=== PATIENT | female | born 1995 | race Caucasian/White ===

== ENCOUNTER → 2018-09-29 17:03 | Outpatient (CLI) | payer BC, MEDICAID, SELFPAY ==
[2018-09-29 17:40] LABS: Basophils % 0.3 % (0.1-2.0); Eosinophils % 0.8 % (0.1-12.0); Hematocrit 37.7 % (37.0-47.0); Hemoglobin 12.5 g/dL (12.2-16.2); Lymphocytes # 1.3 K/mm3 (0.7-4.5); Lymphocytes % 23.8 % (10-50); Mean Corpuscular HGB Conc 33.1 g/dL (31.8-35.4); Mean Corpuscular Hemoglobin 27.4 pg (27.0-31.2); Mean Corpuscular Volume 82.9 fl (81-99); Mean Platelet Volume 8.8 fl (7.4-10.4); Monocytes # 0.3 K/mm3 (0.1-1.0); Neutrophils # 3.7 K/mm3 (1.8-7.8); Neutrophils % 69.1 % (37.0-80.0); Platelet Count 327 K/mm3 (142-424); Red Blood Count 4.54 M/mm3 (4.20-5.40); Red Cell Distribution Width 13.3 % (11.5-17.5); White Blood Count 5.4 K/mm3 (4.8-10.8)
[2018-10-01 09:06] LABS: Rubella Antibodies, IgG 5.23 index (Immune >0.99)
[2018-10-01 09:24] LABS: HIV Screen 4th Generation wRfx Non Reactive (Non Reactive); Rapid Plasma Reagin Ab Titer Non Reactive (NonRea<1:1)
[2018-10-01 17:20] LABS: Hepatitis B Surface Antigen Negative (Negative); Hepatitis C Antibody 0.1 s/co ratio (0.0-0.9)
== END ==
PROVIDERS: Visit Provider Nurse Practitioner Obstetrics & Gynecology
DX: Z34.90 Encounter for supervision of normal pregnancy, unspecified, unspecified trimester (principal)
CPT/HCPCS: 36415; 85025; 86592; 86703; 86762; 86850; 87340; 87380; G0432

== ENCOUNTER → 2018-10-06 14:22 | Outpatient (CLI) | payer BC, MEDICAID, SELFPAY ==
--- NOTE | 2018-10-06 14:24 | US_ITS ---
US OB transvaginal HISTORY: ITS.REASON: US OB Dates ORDERING PHYSICIAN: Johnny Corley MD PATIENT AGE: 23 years COMPARISON: None FINDINGS: An intrauterine gestational sac is present with a pole with a crown-rump length of 1.83cm correlating to gestational age of 8w3d. heart tones are present with an FHR of 182 bpm's. Yolk sac is noted. The amnion and chorion have not yet fused. The uterus is retroverted Adnexa: Unremarkable. IMPRESSION: Live intrauterine gestation at 8 weeks 3 days as described above. Estimated due date by Ultrasound is 05/15/2019
== END ==
PROVIDERS: PCP Emergency Medicine; Visit Provider Nurse Practitioner Obstetrics & Gynecology
DX: O26.841 Uterine size-date discrepancy, first trimester (principal)
CPT/HCPCS: 76817

== ENCOUNTER → 2018-12-27 14:39 | Outpatient (CLI) | payer MEDICAID, SELFPAY ==
--- NOTE | 2018-12-27 14:42 | US_ITS ---
US OB /maternal detail: INDICATION: ITS.REASON: US OB Complete ORDERING PHYSICIAN: Johnny Corley MD PATIENT AGE: 23 years TECHNIQUE: ultrasound transabdominal scanning. COMPARISON: No previous relevant studies. FINDINGS: Single viable intrauterine gestation. Breech position. Placenta: Posterior placenta grade 1. There is average amount fluid. The cervix appears satisfactory. Closed and measuring 3 cm in length. Complete survey performed and was unremarkable on the submitted images as in PACS. No discrete anomalies identified on survey imaging by technologist. Active fetus. Three-vessel cord with satisfactory umbilical cord insertion. 4- chamber heart noted. Nonspecific echogenic intracardiac focus noted Survey of brain & ventricles unremarkable. Face and neck survey unremarkable. Diaphragm and chest views unremarkable. Abdomen: Both kidneys noted and unremarkable. Stomach noted and satisfactory. Spine: Survey of the spine satisfactory with no anomalies identified nor imaged. Both arms and legs noted. Amniotic Fluid: Adequate. Maternal adnexa: No significant findings. Measurements: Average ultrasound age 20w1d. Gestational Age 20w1d. Estimated due date by ultrasound age 1105/15/2019. Estimated weight 337 grams. BPD = 20w1d OFD = 20w2d HC = 19w3d AC = 20w1d FL = 20w4d Growth Percentile= 47% Heart Rate = 150 Cerebellum = 20w1d Humerus = 20w3d HC/AC is 1.13 (1.09-1.26). CI is 79% (70-86%). FL/BPD is 73%. FL/AC is 23%. IMPRESSION: There is a single live fetus in breech presentation. Average ultrasound age is 20 weeks and 1 day. All parameters correlate. Incidental note is made of an echogenic intracardiac focus which is nonspecific. Otherwise negative. Please see above for details.
== END ==
PROVIDERS: Visit Provider Nurse Practitioner Obstetrics & Gynecology
DX: Z36.0 Encounter for antenatal screening for chromosomal anomalies (principal)
CPT/HCPCS: 76811

== ENCOUNTER → 2019-02-12 09:37 | Outpatient (CLI) | payer MEDICAID, SELFPAY ==
[2019-02-12 10:08] LABS: Glucose,Fasting 84 mg/dL (60-105)
[2019-02-12 11:22] LABS: Glucose 1 Hour 88 mg/dL (74-106)
== END ==
PROVIDERS: Visit Provider Nurse Practitioner Obstetrics & Gynecology
DX: Z34.90 Encounter for supervision of normal pregnancy, unspecified, unspecified trimester (principal)
CPT/HCPCS: 36415; 82951

== ENCOUNTER 2019-04-21 09:40 | Outpatient (CLI) | payer MEDICAID, SELFPAY ==
[2019-04-21 09:55] VITALS: BP 144/96; PULSE 103; RESP 18; TEMP 36.6; O2SAT 99; BMI 32.5
[2019-04-21 10:17] LABS: Microscopic, Urine URINE MICROSCOPIC (MICROSCOPIC)
[2019-04-21 10:19] LABS: Appearance,Urine CLEAR (Clear); Bilirubin,Urine Negative (Negative); Blood, Urine Negative (Negative); Color,Urine YELLOW (Yellow); Glucose,Urine (UA) Negative (Negative); Ketones,Urine Negative (Negative); Leukocyte Esterase,Urine Negative (Negative); Nitrate,Urine Negative (Negative); Protein,Urine Negative (Negative); Specific Gravity, Urine 1.025 (1.005-1.030); Urobilinogen,Urine 0.2 EU/dl (0.2)
[2019-04-21 10:29] LABS: Amphetamine/Metha Screen,Urine Negative ng/mL (<1000); Barbiturates Screen,Urine Negative ng/mL (<200); Benzodiazepines Screen,Urine Negative ng/mL (<200); Cannabinoid Screen,Urine Negative ng/mL (<50); Cocaine Screen,Urine Negative ng/mL (<300); Methadone Screen,Urine Negative ng/mL (<300); Opiate Screen,Urine Negative ng/mL (<300); Phencyclidine Screen,Urine Negative ng/mL (<25)
[2019-04-21 10:34] LABS: Bacteria,Urine 1+ /lpf; RBC,Urine Occasional #/hpf (0-3)
[2019-04-21 11:06] LABS: Basophils % 0.4 % (0.1-2.0); Eosinophils % 0.6 % (0.1-12.0); Hematocrit 27.3 % (37.0-47.0); Hemoglobin 8.3 g/dL (12.2-16.2); Lymphocytes # 1.4 K/mm3 (0.7-4.5); Mean Corpuscular HGB Conc 30.5 g/dL (31.8-35.4); Mean Corpuscular Hemoglobin 24.2 pg (27.0-31.2); Mean Corpuscular Volume 79.3 fl (81-99); Mean Platelet Volume 9.6 fl (7.4-10.4); Monocytes # 0.4 K/mm3 (0.1-1.0); Monocytes % 5.1 % (1.7-9.3); Neutrophils % 72.9 % (37.0-80.0); Platelet Count 208 K/mm3 (142-424); Red Blood Count 3.44 M/mm3 (4.20-5.40); Red Cell Distribution Width 14.6 % (11.5-17.5); White Blood Count 6.8 K/mm3 (4.8-10.8)
[2019-04-21 11:24] LABS: Alanine Aminotransferase 15 U/L (12-78); Anion Gap 14.6 mEq/L (5-15); Aspartate Amino Transferase 8 U/L (15-37); Blood Urea Nitrogen 6 mg/dL (7-18); Calcium 7.7 mg/dL (8.5-10.1); Carbon Dioxide 22 mmol/L (21.0-32.0); Chloride 104 mmol/L (98-107); Creatinine Clearance Estimated 220 mL/min (50-200); Creatinine,Serum 0.49 mg/dL (0.55-1.02); Estimated Glomerular Filt Rate 157 ml/min (>60); GFR (African American) 189 ML/MIN (>60); Glucose 77 mg/dL (74-106); Potassium 3.6 mmoL/L (3.5-5.1); Sodium 137 mmol/L (136-145)
[2019-04-21 13:06] LABS: Activated Partial Thrombo Time 25.4 seconds (23.6-34.0); Fibrinogen 392 mg/dL (204-500); INR 0.91 (0.9-1.1); Prothrombin Time 9.5 seconds (9.4-11.8)
[2019-04-21 14:00] LABS: D-Dimer 797 ng/mL (0-400)
== END 2019-04-21 12:45 | disposition home or self-care (01) ==
LOC: OBOUT 09:42 → OB 09:42
PROVIDERS: PCP Nurse Practitioner; Visit Provider Nurse Practitioner Obstetrics & Gynecology
DX: O13.3 Gestational [pregnancy-induced] hypertension without significant proteinuria, third trimester (principal); Z3A.36 36 weeks gestation of pregnancy
CPT/HCPCS: 59025; 80048; 80305; 81001; 84450; 84460; 84550; 85025; 85378; 85384; 85610; 85730

== ENCOUNTER → 2019-04-21 16:36 | Outpatient (CLI) | payer MEDICAID, SELFPAY | PROVIDERS: Visit Provider Nurse Practitioner Obstetrics & Gynecology | DX: Z34.90 Encounter for supervision of normal pregnancy, unspecified, unspecified trimester (principal) | CPT/HCPCS: 86403 ==

== ENCOUNTER → 2019-04-23 11:59 | Outpatient (CLI) | payer MEDICAID, SELFPAY ==
[2019-04-23 15:28] LABS: Creatinine,Urine Random 75 mg/dL (20-320); Patient Height,Urine 61 inches; Patient Weight,Urine 172 lbs; Total Protein,Urine Random 12.9 mg/dL (0.0-11.9)
[2019-04-23 18:28] LABS: Collection Time,Urine 24 hours; Creatinine 24 Hour,Urine 1500 mg/24hr (630-2500); Creatinine Clearance Urine 204.1 mL/min (25-115); Total Protein 24 Hour,Urine 258 mg/24 hr (40-90); Total Volume,Urine 2000 mL (600-1600)
== END ==
PROVIDERS: Visit Provider Nurse Practitioner Obstetrics & Gynecology
DX: O13.3 Gestational [pregnancy-induced] hypertension without significant proteinuria, third trimester (principal); Z3A.36 36 weeks gestation of pregnancy
CPT/HCPCS: 82575; 84155

== ENCOUNTER 2019-05-02 10:10 | Inpatient (IN) ==
[2019-05-02 11:20] LABS: Microscopic, Urine URINE MICROSCOPIC (MICROSCOPIC)
[2019-05-02 11:35] LABS: Anion Gap 15.7 mEq/L (5-15); Basophils % 0.2 % (0.1-2.0); Calcium 8.1 mg/dL (8.5-10.1); Eosinophils % 0.7 % (0.1-12.0); Hemoglobin 8.1 g/dL (12.2-16.2); Lymphocytes # 1.3 K/mm3 (0.7-4.5); Mean Corpuscular Volume 80.6 fl (81-99); Monocytes # 0.4 K/mm3 (0.1-1.0); Monocytes % 5.6 % (1.7-9.3); Neutrophils # 4.9 K/mm3 (1.8-7.8); Neutrophils % 73.6 % (37.0-80.0); Platelet Count 172 K/mm3 (142-424); Red Blood Count 3.48 M/mm3 (4.20-5.40); Red Cell Distribution Width 17.2 % (11.5-17.5); Uric Acid 3.7 mg/dL (2.6-7.2); White Blood Count 6.7 K/mm3 (4.8-10.8)
[2019-05-02 11:37] LABS: Amphetamine/Metha Screen,Urine Negative ng/mL (<1000); Barbiturates Screen,Urine Negative ng/mL (<200); Benzodiazepines Screen,Urine Negative ng/mL (<200); Cannabinoid Screen,Urine Negative ng/mL (<50); Cocaine Screen,Urine Negative ng/mL (<300); Methadone Screen,Urine Negative ng/mL (<300); Opiate Screen,Urine Negative ng/mL (<300); Phencyclidine Screen,Urine Negative ng/mL (<25)
[2019-05-02 12:19] LABS: Activated Partial Thrombo Time 25.7 seconds (23.6-34.0); INR 0.91 (0.9-1.1); Prothrombin Time 9.5 seconds (9.4-11.8)
[2019-05-02 16:15] LABS: Appearance,Urine SL CLOUDY (Clear); Bilirubin,Urine Negative (Negative); Blood, Urine Negative (Negative); Color,Urine YELLOW (Yellow); Glucose,Urine (UA) Negative (Negative); Ketones,Urine Negative (Negative); Leukocyte Esterase,Urine Negative (Negative); PH,Urine 6.5 (5.0-8.5); Protein,Urine Negative (Negative); Urobilinogen,Urine 0.2 EU/dl (0.2)
[2019-05-02 17:00] LABS: Bacteria,Urine 2+ /lpf
--- NOTE | 2019-05-02 17:57 | History & Physical Report ---
OB - H&P: HPI Antepartum - History of Present Illness Chief complaint: -induced hypertension, chronic hypertension History of present illness: She is a 24-year-old 1 para 0 at 38 and 1 weeks gestational age. She was seen in my office today and her blood pressure was increased at 160/105. She has no symptoms. She was quite hyperreflexic. As a result of this she is admitted to labor and delivery. She has been on labetalol 200 mg twice daily for the last week. All of her blood work has been normal. Her 24-hour urine was normal as well. - History of Present Criteria for establishing EDC:: LMP confirmed by 1st trimester US care: good care Ultrasounds: normal 1st trimester US, normal mid trimester US Obstetrical complications: preeclampsia, gestational hypertension [facility] History I have reviewed the patient's past medical history: Yes Medical History: Denies:: Cancer, Diabetes Mellitus Type 1, Diabetes Mellitus Type 2, MRSA *Have you ever received a pneumonia vaccine?: No *Have you received a flu vaccine this season?: No Other Surgeries: Yes: Other. No: Amputation: No Fractures: No - *Social History Smoking Status: Former smoker Alcohol Intake: current Alcohol Intake Frequency:: a few times a month Substance Use Type: denies use *Occupational Status:: employed Housing: house Household Members: family *Travel in the last 8 weeks: None Family Hx:: No significant family history Para: 0 Review of Systems - Review of Systems Review of systems:: pertinent systems reviewed and negative unless documented below Meds Home Medications Medication Instructions Recorded Confirmed Type 1 tab PO DAILY 10/27/18 05/02/19 History vitamin,calcium,seiqptbo-pase-pbvyx acid tablet labetalol 200 mg tablet 200 mg PO BID 04/28/19 05/02/19 History RX: Ferrous Sulfate 325 mg PO DAILY 05/02/19 05/02/19 History Allergies Allergy/AdvReac Type Severity Reaction Status Date / Time penicillin G [PENICILLIN G] Allergy Intermediate I-RASH Verified 05/02/19 09:51 Sulfa (Sulfonamide Allergy Intermediate I-RASH Verified 05/02/19 09:51 Antibiotics) [SULFA (SULFONAMIDE ANTIBIOTICS)] OB - H&P: Exam - Physical Exam Vital signs: Temp Pulse Resp BP Pulse Ox 98.1 F 112 H 18 136/84 99 05/02/19 16:31 05/02/19 17:31 05/02/19 16:31 05/02/19 17:31 05/02/19 10:13 - Constitutional no acute distress - Routine HEENT Exam Head: Present: normocephalic Eye: Present: EOMI, PERRL ENT: Present: mucous membranes moist - Routine Neck Exam Present: supple, full ROM - Routine Respiratory Exam Absent: accessory muscle use (good air entry bilaterally), respiratory distress, wheezes, crackles - Routine Cardiovascular Exam Present: RRR. Absent: murmur - Routine Abdominal Exam Present: soft, normoactive bowel sounds. Absent: tenderness, distended, guarding - Routine Rectal Exam Patient deferred: visual exam, digital exam - Routine Exam Patient deferred: external exam, groin exam, perineal exam - Routine Extremities Exam Present: full ROM. Absent: cyanosis, edema - Routine Skin Exam Present: intact. Absent: cyanosis - Routine Neurological Exam Present: alert, oriented X3 - Routine Psychiatric Exam Present: normal affect OB - Results - Labs Labs: Short CBC 05/02/19 Range/Units 11:00 WBC 6.7 (4.8-10.8) K/mm3 Hgb 8.1 L (12.2-16.2) g/dL Hct 28.0 L (37.0-47.0) % Plt Count 172 (142-424) K/mm3 BMP 05/02/19 11:00 Sodium 138 Potassium 3.7 Chloride 104 Carbon Dioxide 22 BUN 6 L Creatinine 0.47 L Glucose 75 Calcium 8.1 L Liver Function 05/02/19 Range/Units 11:00 AST 12 L (15-37) U/L ALT 17 (12-78) U/L Urine 05/02/19 Range/Units 10:20 Urine Color Yellow (Yellow) Urine Appearance Sl cloudy (Clear) Urine pH 6.5 (5.0-8.5) Ur Specific [place] 1.020 (1.005-1.030) Urine Protein Negative (Negative) Urine Glucose (UA) Negative (Negative) OB - A/P Antepartum (1) induced hypertension Current visit: Yes Status: Acute - Additional Plan Plan: induction Additional Information:: Her blood pressure is elevated although it did settle with her bedrest. Blood work is all normal. Have admitted her and inserted Cervidil. We will plan to deliver her tomorrow.
--- NOTE | 2019-05-03 08:23 | Progress Note ---
Labor Note - Subjective: Date: 05/03/19 Time: 08:22 regular contraction - Objective: NST:: Reactive Contractions:: every 2-3 minutes Cervical Dilation:: 2 Effacement:: 75% Station: -3 Membranes: artificially ruptured - Fetus: Monitoring?: Yes monitoring type:: External - Assessment: Labor progressing?: Yes Cephalopelvic disproportion?: No Patient Problems: All Active Problems induced hypertension (Acute) (Acute) Nausea & vomiting (Acute) Viral illness (Acute) Abdominal pain (Acute) Viral upper respiratory illness (Acute) Paresthesia of thumb of left hand (Acute) - Plan: Anesthesia for epidural?: No Continue to labor down?: Yes Plan for ?: No Continue to monitor?: Yes Start pushing?: No Comment:: She had Cervidil overnight and is now 2 cm 75%. I ruptured membranes and there was clear fluid. We will expect a vaginal delivery.
--- NOTE | 2019-05-03 10:50 | Progress Note ---
Labor Note - Subjective: Date: 05/03/19 Time: 10:49 regular contraction - Objective: NST:: Reactive Cervical Dilation:: 2-3 Effacement:: 75% Station: -1 Membranes: artificially ruptured - Fetus: Monitoring?: Yes monitoring type:: External - Assessment: Labor progressing?: Yes Cephalopelvic disproportion?: No Patient Problems: All Active Problems induced hypertension (Acute) (Acute) Nausea & vomiting (Acute) Viral illness (Acute) Abdominal pain (Acute) Viral upper respiratory illness (Acute) Paresthesia of thumb of left hand (Acute) - Plan: Anesthesia for epidural?: No Continue to labor down?: Yes Plan for ?: No Continue to monitor?: Yes Start pushing?: No
[2019-05-03 13:17] LABS: Microscopic, Urine URINE MICROSCOPIC (MICROSCOPIC)
[2019-05-03 13:22] LABS: Appearance,Urine CLEAR (Clear); Bilirubin,Urine Negative (Negative); Blood, Urine TRACE-I (Negative); Color,Urine YELLOW (Yellow); Glucose,Urine (UA) Negative (Negative); Ketones,Urine Negative (Negative); Leukocyte Esterase,Urine Negative (Negative); Protein,Urine Negative (Negative); Urobilinogen,Urine 0.2 EU/dl (0.2)
--- NOTE | 2019-05-03 13:28 | Progress Note ---
[facility] Anesthesia Checklist - Patient Identification Patient Identification: Arm Band - Structural Data Admitted From: Home Planned Operative Procedure/s: labor epidural Consent for Planned Operative Procedure(s) Verified: Yes Verified Documents: Surgical Consent, History and Physical - NPO Status Verified Time NPO: 00:00 - Additional verifications Anesthesia Reactions: No - Airway Assessment C-Spine Mobility Assessed: Yes TMJ Mobility Assessed: Yes Dentition: Good Dentition - Neurological Assessment Level of Consciousness: Awake, Alert - Anesthesia Plan Anesthesia Risk discussed: Yes Anesthesia Plan: Verified ASA Class: II Anesthesia Type: Epidural [facility] History I have reviewed the patient's past medical history: Yes Medical History: Reports:: Hypertension ( induced) Denies:: Cancer, Diabetes Mellitus Type 1, Diabetes Mellitus Type 2, MRSA *Have you ever received a pneumonia vaccine?: No *Have you received a flu vaccine this season?: No Anesthesia experience/problems:: nac Other Surgeries: Yes: Other. No: Amputation: No Fractures: No - *Social History Smoking Status: Former smoker Alcohol Intake: current Alcohol Intake Frequency:: a few times a month Substance Use Type: denies use *Occupational Status:: employed Housing: house Household Members: family *Travel in the last 8 weeks: None Family Hx:: No significant family history Para: 0
--- NOTE | 2019-05-03 13:39 | Progress Note ---
Labor Note - Subjective: Date: 05/03/19 Time: 13:38 regular contraction - Objective: NST:: Reactive Contractions:: every 2-3 minutes Cervical Dilation:: 4 Effacement:: 90% Station: -1 Membranes: artificially ruptured - Fetus: Monitoring?: Yes monitoring type:: External - Assessment: Labor progressing?: Yes Cephalopelvic disproportion?: No Patient Problems: All Active Problems induced hypertension (Acute) (Acute) Nausea & vomiting (Acute) Viral illness (Acute) Abdominal pain (Acute) Viral upper respiratory illness (Acute) Paresthesia of thumb of left hand (Acute) - Plan: Anesthesia for epidural?: Yes Continue to labor down?: Yes Plan for ?: No Continue to monitor?: Yes Start pushing?: No
--- NOTE | 2019-05-03 15:34 | Progress Note ---
Labor Note - Subjective: Date: 05/03/19 Time: 15:34 regular contraction - Objective: Contractions:: every 2-3 minutes Cervical Dilation:: 4 Effacement:: 90% Station: -1 Membranes: artificially ruptured - Fetus: Monitoring?: Yes - Assessment: Labor progressing?: No Cephalopelvic disproportion?: No Patient Problems: All Active Problems induced hypertension (Acute) (Acute) Nausea & vomiting (Acute) Viral illness (Acute) Abdominal pain (Acute) Viral upper respiratory illness (Acute) Paresthesia of thumb of left hand (Acute) - Plan: Anesthesia for epidural?: Yes Continue to labor down?: Yes Plan for ?: No Continue to monitor?: Yes Start pushing?: No
--- NOTE | 2019-05-03 17:16 | Progress Note ---
Labor Note - Subjective: Date: 05/03/19 Time: 17:15 regular contraction - Objective: NST:: Reactive Contractions:: every 2-3 minutes Cervical Dilation:: 4 Effacement:: 100% Station: -1 Membranes: artificially ruptured - Fetus: Monitoring?: Yes monitoring type:: External - Assessment: Labor progressing?: No Cephalopelvic disproportion?: No Patient Problems: All Active Problems induced hypertension (Acute) (Acute) Nausea & vomiting (Acute) Viral illness (Acute) Abdominal pain (Acute) Viral upper respiratory illness (Acute) Paresthesia of thumb of left hand (Acute) - Plan: Anesthesia for epidural?: Yes Continue to labor down?: Yes Plan for ?: No Continue to monitor?: Yes Start pushing?: No Comment:: Her cervix has thinned out significantly and there is molding of the head. She remains at 4 cm. The head has come down somewhat. We will see how she does over the next couple of hours. If she has not changed her cervix or descended anymore we will plan for a section.
--- NOTE | 2019-05-03 19:40 | Progress Note ---
Labor Note - Subjective: Date: 05/03/19 Time: 19:39 regular contraction - Objective: NST:: Reactive Contractions:: every 2-3 minutes Cervical Dilation:: 6 Effacement:: 100% Station: -1 Membranes: artificially ruptured - Fetus: Monitoring?: Yes monitoring type:: External - Assessment: Labor progressing?: Yes Cephalopelvic disproportion?: No Patient Problems: All Active Problems induced hypertension (Acute) (Acute) Nausea & vomiting (Acute) Viral illness (Acute) Abdominal pain (Acute) Viral upper respiratory illness (Acute) Paresthesia of thumb of left hand (Acute) - Plan: Anesthesia for epidural?: Yes Continue to labor down?: Yes Plan for ?: No Continue to monitor?: Yes Start pushing?: No Comment:: There is significant molding of the head and her cervix is now 6 cm. We will continue on for now.
--- NOTE | 2019-05-03 22:07 | Progress Note ---
Labor Note - Subjective: Date: 05/03/19 Time: 22:06 regular contraction - Objective: NST:: Reactive Contractions:: every 2-3 minutes Cervical Dilation:: 9 Effacement:: 100% Station: 0 Membranes: artificially ruptured - Fetus: Monitoring?: Yes monitoring type:: External - Assessment: Labor progressing?: Yes Cephalopelvic disproportion?: No Patient Problems: All Active Problems induced hypertension (Acute) (Acute) Nausea & vomiting (Acute) Viral illness (Acute) Abdominal pain (Acute) Viral upper respiratory illness (Acute) Paresthesia of thumb of left hand (Acute) - Plan: Anesthesia for epidural?: Yes Continue to labor down?: Yes Plan for ?: No Continue to monitor?: Yes Start pushing?: No
--- NOTE | 2019-05-03 23:53 | Progress Note ---
Labor Note - Subjective: Date: 05/03/19 Time: 23:52 regular contraction - Objective: NST:: Reactive Contractions:: every 2-3 minutes Cervical Dilation:: 9-10 Effacement:: 100% Station: +1 Membranes: artificially ruptured - Fetus: Monitoring?: Yes monitoring type:: External - Assessment: Labor progressing?: Yes Cephalopelvic disproportion?: No Patient Problems: All Active Problems induced hypertension (Acute) (Acute) Nausea & vomiting (Acute) Viral illness (Acute) Abdominal pain (Acute) Viral upper respiratory illness (Acute) Paresthesia of thumb of left hand (Acute) - Plan: Anesthesia for epidural?: Yes Continue to labor down?: Yes Plan for ?: No Continue to monitor?: Yes Start pushing?: Yes Continue pushing?: Yes Comment:: She has been pushing and she is doing well. We will continue on with her pushing.
--- NOTE | 2019-05-04 00:35 | Progress Note ---
Labor Note - Subjective: Date: 05/04/19 Time: 00:34 regular contraction - Objective: NST:: Reactive Contractions:: every 2-3 minutes Cervical Dilation:: 9-10 Effacement:: 100% Station: +2 Membranes: artificially ruptured - Fetus: Monitoring?: Yes - Assessment: Labor progressing?: Yes Cephalopelvic disproportion?: No Patient Problems: All Active Problems induced hypertension (Acute) (Acute) Nausea & vomiting (Acute) Viral illness (Acute) Abdominal pain (Acute) Viral upper respiratory illness (Acute) Paresthesia of thumb of left hand (Acute) - Plan: Anesthesia for epidural?: Yes Continue to labor down?: Yes Plan for ?: No Continue to monitor?: Yes Start pushing?: Yes Continue pushing?: Yes
--- NOTE | 2019-05-04 01:19 | Procedure Note ---
- Delivery Note Delivery Date:: 05/04/19 Delivery Time:: 00:50 Anesthesia Type: Epidural Was labor medically induced?: Yes Induction method: per pitocin protocol Gestational age (weeks): 38 Infant delivered prior to 39 weeks?: Yes Justification for early elective delivery:: Gestational Hypertension Infant Gender: Male at 1 minute: 4 at 5 minutes: 7 AF:: Clear Delivery Procedure:: She is a 24-year-old 1 para 0 at 38 weeks and 2 days. She had increased blood pressure in my office. I had started her on labetalol but her blood pressures continue to elevate. As a result of that we elected to induce her labor. She had Cervidil placed on the evening of September 30, 2018. The following morning she had her membranes ruptured and under labor epidural she progressed to full dilation. She delivered tenuously a liveborn male child at 12:50 in the tear down worker hours of May 04, 2019. On deliver the head the anterior shoulder then delivered followed by the rest the 's body atraumatically. The oropharynx and nasopharynx were bulb suction. The baby had some initial movements but was not crying so we doubly clamped the cord and took the baby over to the warmer where we gave the baby blow-by oxygen. He picked up fairly quickly and began breathing and crying on his own. His color was reasonably good. We then obtained cord blood as well as cord pH. She received IV oxytocin and using gentle traction on the cord and countertraction on the fundus I was able to easily deliver the placenta intact. He had a normal three-vessel cord. She had a second-degree perineal laceration that was repaired with 2-0 PDS suture to the very deep tissues followed by 3-0 Vicryl suture to the superficial tissues of the vagina. I then closed the deep tissues of the perineum with 2-0 Vicryl suture. She has a positive blood, she is rubella immune and was group A streptococcus negative. Estimated blood loss was approximately 600 cc. We did give her 1 dose of Hemabate for prophylactic contraction of her uterus since she has been on Cervidil then oxytocin for over 24 hours. Laceration:: vaginal Placental Delivery Description: Spontaneous
[2019-05-04 05:39] LABS: Hematocrit 27.7 % (37.0-47.0); Hemoglobin 8.3 g/dL (12.2-16.2)
--- NOTE | 2019-05-04 09:09 | Progress Note ---
Internal Medicine - PN: Subj *Date: 05/04/19 *Time: 09:08 Interval history: She is doing well this morning. She is eating and drinking and ambulating. She is bottlefeeding. Her lochia is normal. Exam Vital signs and Labs for Last 24 Hours: Temp Pulse Resp BP Pulse Ox 97.7 F 95 H 18 135/89 98 05/03/19 16:00 05/03/19 16:00 05/03/19 16:00 05/03/19 16:00 05/03/19 16:00 Laboratory Results - last 24 hr 05/03/19 13:00: Urine Color Yellow, Urine Appearance Clear, Urine pH 6.0, Ur Specific [place] 1.010, Urine Protein Negative, Urine Glucose (UA) Negative, Urine Ketones Negative, Urine Blood Trace-i, Urine Nitrate Negative, Urine Bilirubin Negative, Urine Urobilinogen 0.2, Ur Leukocyte Esterase Negative, Urine RBC 10-20, Urine WBC 3-5, Ur Squamous Epith Cells 10-20, Urine Bacteria None 05/04/19 01:10: Cord ABG pH 7.24 L* 05/04/19 05:26: Hgb 8.3 L, Hct 27.7 L I & O for Last 24 hours: Intake & Output 05/01/19 05/02/19 05/03/19 05/04/19 11:59 11:59 11:59 11:59 Weight 177 lb Microbiology Reports for the Last 24 Hours: Microbiology 05/02/19 10:20 Urine,Clean Catch Urine Culture - Preliminary NO GROWTH AFTER 24 HOURS - Constitutional no acute distress Assessment and Plan (1) induced hypertension Current visit: Yes Status: Acute Category: Medical Code(s): O13.9 - Gestational [-induced] hypertension without significant proteinuria, unspecified trimester (2) Normal delivery at term Current visit: Yes Status: Acute Category: Medical Code(s): O80 - Encounter for full-term uncomplicated delivery - Assessment and plan all Dx Assessment and Plan for all problems:: She is doing well this morning. She is eating and drinking and ambulating. Her lochia is normal. Her hemoglobin is stable. We will plan to send her home in 48 hours.
[2019-05-05 07:25] LABS: Hematocrit 21.3 % (37.0-47.0)
--- NOTE | 2019-05-05 10:22 | Progress Note ---
Internal Medicine - PN: Subj *Date: 05/05/19 *Time: 10:19 Interval history: She is doing well this morning. Her hemoglobin is 6.0. Her hemoglobin was only 8.1 prior to delivery. She has not had any excessive bleeding and she did not bleed excessively at the time of her delivery. She was a little dizzy yesterday and she was on mag sulfate at that time. Her blood pressure is stable. We will make arrangements for her to have a blood transfusion today. Exam Vital signs and Labs for Last 24 Hours: Temp Pulse Resp BP Pulse Ox 98.0 F 99 H 18 120/69 99 05/05/19 10:10 05/05/19 10:10 05/05/19 10:10 05/05/19 10:10 05/05/19 10:10 Laboratory Results - last 24 hr 05/04/19 10:48: Magnesium 5.4 H D 05/05/19 06:48: Hgb 6.0 L*, Hct 21.3 L* 05/05/19 07:50: Blood Type A Positive, Antibody Screen Negative, Crossmatch (AHG) See Detail I & O for Last 24 hours: Intake & Output 05/02/19 05/03/19 05/04/19 05/05/19 11:59 11:59 11:59 11:59 Intake Total 0 / 0 Balance 0 / 0 Weight 177 lb Microbiology Reports for the Last 24 Hours: Microbiology 05/02/19 10:20 Urine,Clean Catch Urine Culture - Final NO GROWTH AFTER 48 HOURS - Constitutional no acute distress Assessment and Plan (1) induced hypertension Current visit: Yes Status: Acute Category: Medical Code(s): O13.9 - Gestational [-induced] hypertension without significant proteinuria, unspecified trimester (2) Normal delivery at term Current visit: Yes Status: Acute Category: Medical Code(s): O80 - Encounter for full-term uncomplicated delivery (3) Anemia affecting Current visit: Yes Status: Acute Category: Medical Code(s): O99.019 - Anemia complicating , unspecified trimester - Assessment and plan all Dx Assessment and Plan for all problems:: Her hemoglobin is low today post delivery. She is not actively bleeding. We will go ahead and transfuse her 1 unit of blood today. We will plan to send her home tomorrow.
[2019-05-05 12:43] LABS: Hematocrit 24.4 % (37.0-47.0)
[2019-05-05 12:58] LABS: Hemoglobin 7.7 g/dL (12.2-16.2)
[2019-05-05 13:06] VITALS: BP 126/82
[2019-05-06 07:16] LABS: Hemoglobin 7.3 g/dL (12.2-16.2)
--- NOTE | 2019-05-06 07:43 | Discharge Summary ---
General - General Admission date:: 05/02/19 Discharge date: 05/06/19 HPI HPI: She is a 24-year-old 1 para 1 who was 38 and 2 weeks gestational age. Her blood pressure has been increasing and as a result of that we elected to admit her for delivery. Hospital Course Hospital Course: On the day of admission she was started with Cervidil. The following day we started her on IV oxytocin rupture membranes. Under labor epidural she progressed to full dilation and delivered spontaneously a liveborn male child at 12:50 on the morning of May 04, 2019. The baby was a liveborn male child weighing 6 pounds 14 ounces and he was 21 inches long. His Apgars were 4 at 1 minute and 7 at 5 minutes. She came in with a low hemoglobin and the following day after surgery her hemoglobin was found to be 6.0. As a result of that we elected to transfuse her 1 unit. Her hemoglobin today is 7.3. She has a positive blood, she is rubella immune and was group B streptococcus negative. She is discharged home to follow-up with me in approximately 2 weeks time. She will continue with her vitamins and iron. She was given the usual instructions with respect to limiting her activity, driving and sexual activity. I have given her a prescription for Percocet 5/325 number 12 tablets. She will take stool softeners as well. Rhogam Administration: Not Indicated Objective Vital signs: Temp Pulse Resp BP Pulse Ox 98.0 F 96 H 18 126/82 99 05/05/19 12:16 05/05/19 12:16 05/05/19 12:16 05/05/19 12:16 05/05/19 12:16 no acute distress Results Labs on day of discharge: Labs from last 24 hours 05/06/19 05/05/19 05/05/19 06:25 12:30 07:50 Hgb 7.3 L* 7.7 L* D Hct 24.0 L 24.4 L Blood Type A Positive Antibody Screen Negative Crossmatch (AH) See Detail DS: Diagnosis - Discharge Diagnosis (1) induced hypertension Status: Acute (2) Normal delivery at term Status: Acute (3) Anemia affecting Status: Acute Discharge Plan - Patient Discharge Instructions ACTIVITY: No heavy lifting DIET: continue same diet - Follow up Plan Disposition: Home, Self-Fci Medications: Home Medications Medication Instructions Recorded Confirmed Type 1 tab PO DAILY 10/27/18 05/02/19 History vitamin,calcium,fmjlzgun-ssgb-wmcot acid tablet labetalol 200 mg tablet 200 mg PO BID 04/28/19 05/02/19 History Ferrous Sulfate 325 mg PO DAILY 05/02/19 05/02/19 History Docusate Sodium [Colace] 100 mg PO DAILY #30 cap 05/06/19 Rx Oxycodone HCl/Acetaminophen 1 tab PO Q4-6H PRN #20 tab 05/06/19 Rx [Percocet 5/325mg tablet] Prescriptions/Medication Reconciliation: New Oxycodone HCl/Acetaminophen [Percocet 5/325mg tablet] 1 tab PO Q4-6H PRN #20 tab PRN Reason: Severe Pain Docusate Sodium [Colace] 100 mg PO DAILY #30 cap Continued vitamin,calcium,wqefedka-npuy-hgahb acid tablet 1 tab PO DAILY labetalol 200 mg tablet 200 mg PO BID Ferrous Sulfate 325 mg PO DAILY - Problem Reconciliation Problems Reviewed?: Yes
== END 2019-05-06 10:45 | disposition home or self-care (01) | DRG 807 ==
LOC: OBOUT 10:10 → OB 10:11
PROVIDERS: ADMIT Nurse Practitioner Obstetrics & Gynecology; ATTEND Nurse Practitioner Obstetrics & Gynecology
CPT/HCPCS: 36415; 59025; 80048; 80305; 81001; 82800; 83735; 84450; 84460; 84550; 85014; 85018; 85025; 85378; 85384; 85610; 85730; 86850; 87086; 94761; J0595; P9016

== ENCOUNTER → 2022-07-08 13:12 | Outpatient (CLI) | payer MEDICAID, SELFPAY ==
[2022-07-08 15:11] LABS: HCG,Quantitative 617 mIU/ml (0-5.42)
== END ==
PROVIDERS: Visit Provider Obstetrics & Gynecology
DX: Z34.90 Encounter for supervision of normal pregnancy, unspecified, unspecified trimester (principal)
CPT/HCPCS: 36415; 84702

== ENCOUNTER → 2022-07-30 14:22 | Outpatient (CLI) | payer MEDICAID, SELFPAY ==
[2022-07-30 14:55] LABS: Basophils % 0.5 % (0.1-2.0); Eosinophils # 0.1 K/mm3 (0.0-0.4); Eosinophils % 1.2 % (0.1-12.0); Hematocrit 37.5 % (37.0-47.0); Hemoglobin 12.3 g/dL (12.2-16.2); Lymphocytes # 1.3 K/mm3 (0.7-4.5); Lymphocytes % 20.7 % (10-50); Mean Corpuscular HGB Conc 32.8 g/dL (31.8-35.4); Mean Corpuscular Hemoglobin 27.7 pg (27.0-31.2); Mean Corpuscular Volume 84.5 fl (81-99); Mean Platelet Volume 8.9 fl (7.4-10.4); Monocytes # 0.3 K/mm3 (0.1-1.0); Monocytes % 4.2 % (1.7-9.3); Neutrophils # 4.7 K/mm3 (1.8-7.8); Neutrophils % 73.4 % (37.0-80.0); Platelet Count 327 K/mm3 (142-424); Red Blood Count 4.44 M/mm3 (4.20-5.40); White Blood Count 6.4 K/mm3 (4.8-10.8)
[2022-07-30 19:22] LABS: Alanine Aminotransferase 21 U/L (12-78); Albumin Level 4.4 g/dl (3.5-5.0); Albumin/Globulin Ratio 1.8 (1.1-1.8); Alkaline Phosphatase 37 U/L (38-126); Anion Gap 6.8 mEq/L (5-15); Aspartate Amino Transferase 25 U/L (14-36); Bilirubin,Total 0.3 mg/dl (0.2-1.3); Blood Urea Nitrogen 5 mg/dl (7-17); Calcium 8.9 mg/dl (8.4-10.2); Carbon Dioxide 28 mmol/L (22.0-30.0); Chloride 106 mmol/L (98-107); Estimated Glomerular Filt Rate 149 ml/min (>60); GFR (African American) 180 ML/MIN (>60); Globulin 2.4 g/dL (1.3-3.2); Glucose 89 mg/dl (74-100); Potassium 3.8 mmoL/L (3.5-5.1); Sodium 137 mmol/L (136-145); Total Protein,Serum 6.8 g/dl (6.3-8.2)
[2022-07-30 21:30] LABS: Benzodiazepines Screen,Urine Negative ng/ml (<200)
[2022-07-30 21:31] LABS: Amphetamine/Metha Screen,Urine Negative ng/ml (<1000); Barbiturates Screen,Urine Negative ng/ml (<200)
[2022-07-30 21:32] LABS: Cannabinoid Screen,Urine Negative ng/ml (<50)
[2022-07-30 21:33] LABS: Cocaine Screen,Urine Negative ng/ml (<300)
[2022-07-30 21:34] LABS: Methadone Screen,Urine Negative ng/ml (<300); Opiate Screen,Urine Negative ng/ml (<300)
[2022-07-30 21:35] LABS: Phencyclidine Screen,Urine Negative ng/ml (<25)
[2022-07-30 22:15] LABS: Microalbumin/Creatinine Ratio 9.1
[2022-07-30 22:17] LABS: Creatinine,Urine Random 256 mg/dL (Not Estab.)
[2022-08-01 18:08] LABS: HIV Screen 4th Generation wRfx Non Reactive (Non Reactive); Rapid Plasma Reagin Ab Titer Non Reactive (NonRea<1:1)
[2022-08-02 06:04] LABS: Hepatitis B Surface Antigen Negative; Hepatitis C Antibody <0.1
== END ==
PROVIDERS: Visit Provider Obstetrics & Gynecology
DX: Z34.90 Encounter for supervision of normal pregnancy, unspecified, unspecified trimester (principal); Z87.59 Personal history of other complications of pregnancy, childbirth and the puerperium
CPT/HCPCS: 36415; 80053; 80305; 82043; 82570; 85025; 86593; 86703; 86762; 86850; 87340; 87380; G0432

== ENCOUNTER 2022-10-06 13:03 | Emergency (ER) | payer MEDICAID, SELFPAY ==
[2022-10-06 13:21] VITALS: BP 134/78; PULSE 117; RESP 20; TEMP 36.8; O2SAT 100; BMI 26.4
--- NOTE | 2022-10-06 13:36 | PC.NURSE ---
Dr mancia spoke with cal Mancia
--- NOTE | 2022-10-06 13:45 | HMH.EDGENADL ---
Discharge Plan Disposition Patient Disposition: Home, Self-Care Prescriptions Prescriptions: New nitrofurantoin macrocrystal 100 mg capsule 100 mg PO BID 5 Days Qty: 10 0RF Rx Instructions: must administer with a meal/food No Action promethazine 12.5 mg tablet 12.5 mg PO TID PRN (Reason: nausea and vomiting) Qty: 20 1RF prenat.vits,rhett,fxm-cwjz-gqbgn Tablet 1 tab PO DAILY Referrals Follow up/Referrals: Provider,Referral, [Primary Care Provider] - See instructions Clinical Impressions Clinical Impression: Urinary tract infection affecting Instructions Patient Instructions: DI for Urinary Tract Infection (UTI), DI for Urinary Tract Infection in Children Discharge ED Provider: Jono Mancia General Adult HPI General Chief complaint: Urogenital-Female Stated complaint: 5 Months , abd pain, pressure urinating Time Seen by Provider: 10/06/22 13:45 Mode of Arrival: Ambulatory Source of Information: Patient Limitations: No Limitations Description of Symptoms (Recalled from ER Triage Doc. by RN): pt to ed c/o burning with urination, and pelvic pressure. pt states she is 20w . pt denies abd pain. History of Present Illness HPI narrative: Patient is a 27-year-old at 20 weeks gestational age from first trimester ultrasound presents with urinary symptoms including pain before and after urination but otherwise feels intermittently normal between urination episodes. No flank pain no fevers or chills no vaginal bleeding loss of fluid or contractions. She denies any other symptoms elsewhere. Related Data Home Medications Medication Instructions Recorded Confirmed prenat.vits,rhett,twf-buce-mhyvq 1 tab PO DAILY 08/25/22 09/22/22 Previous Rx's Medication Instructions Recorded promethazine 12.5 mg tablet 12.5 mg PO TID PRN nausea and 07/28/22 vomiting #20 tabs nitrofurantoin macrocrystal 100 mg 100 mg PO BID 5 days #10 caps 10/06/22 capsule Allergies Allergy/AdvReac Type Severity Reaction Status Date / Time penicillin G [PENICILLIN G] Allergy Intermediate I-RASH Verified 09/22/22 13:37 Sulfa (Sulfonamide Allergy Intermediate I-RASH Verified 09/22/22 13:37 Antibiotics) [SULFA (SULFONAMIDE ANTIBIOTICS)] [facility] Disclaimer: The information contained in this section may have been updated after the patient was seen, as this information can be updated by other users. Medical History HGSIL (high grade squamous intraepithelial lesion) on Pap smear of cervix History of induced hypertension Nausea/vomiting in Paresthesia of both hands induced hypertension, delivered, current hospitalization Surgical History History of thumb surgery Social History Smoking Status: Never smoker alcohol intake: never substance use type: denies use current occupational status: employed Travel in the last 8 weeks: None household members: family housing: house ROS Obtained: Yes All systems reviewed & no additional complaints except as documented Physical Exam General General appearance: alert and in no apparent distress Respiratory Respiratory exam: Absent respiratory distress Cardiovascular Cardiovascular exam: Absent tachycardia Abdominal Exam Abdominal exam: Present soft; Absent distention, tenderness, guarding, rebound or rigidity Neurological Exam Neurological exam: Present alert and oriented X3 Medical Decision Making Vicente Inquiry Pt receiving controlled substance: No Vital Signs: 10/06/22 13:21 Temperature 98.3 F Temperature Source Oral Pulse Rate [Left Radial] 117 H Respiratory Rate 20 Blood Pressure [Right Arm] 134/78 Blood Pressure Mean [Right Arm] 96 02 Sat by Pulse Oximetry 100 Lab Data Lab results reviewed: Yes
[2022-10-06 14:00] VITALS: BP 144/88; PULSE 96; O2SAT 99
[2022-10-06 14:15] LABS: Microscopic, Urine URINE MICROSCOPIC (MICROSCOPIC)
[2022-10-06 14:19] LABS: Appearance,Urine CLOUDY (Clear); Bilirubin,Urine Negative (Negative); Blood, Urine 2+ (Negative); Color,Urine YELLOW (Yellow); Glucose,Urine (UA) Negative (Negative); Ketones,Urine 1+ (Negative); Leukocyte Esterase,Urine TRACE (Negative); Nitrate,Urine Negative (Negative); Protein,Urine TRACE (Negative); Urobilinogen,Urine 0.2 EU/dl (0.2)
[2022-10-06 14:28] VITALS: BP 144/88; PULSE 78; RESP 20; TEMP 36.8; O2SAT 96
[2022-10-06 14:35] LABS: WBC,Urine 20-50 #/hpf (0-3)
[2022-10-06 14:36] LABS: Bacteria,Urine 1+ /lpf
== END 2022-10-06 14:29 | disposition home or self-care (01) ==
PROVIDERS: Emergency Provider Student in an Organized Health Care Education/Training Program
DX: O23.42 Unspecified infection of urinary tract in pregnancy, second trimester (principal); Z3A.20 20 weeks gestation of pregnancy
CPT/HCPCS: 76815; 81001; 87086; 99284

== ENCOUNTER → 2022-10-23 13:52 | Outpatient (CLI) | payer MEDICAID, SELFPAY ==
--- NOTE | 2022-10-23 13:53 | US_ITS ---
FINAL REPORT CLINICAL HISTORY: 20 week anatomy scan please use anatomy scan template FINDINGS: There is a single live intrauterine gestation. Presentation is breech. The cervix is closed and measures 3 cm. Placenta is posterior. movement is noted. heart rate is 147 beats per minute. Three-vessel cord with satisfactory umbilical cord insertion. Four-chamber heart is noted. brain and ventricles are unremarkable. Chest and diaphragm are unremarkable. ABDOMEN: Both kidneys are unremarkable. Stomach is unremarkable. SPINE: No anomalies identified. AMNIOTIC FLUID: Appropriate amount. MEASUREMENTS: ULTRASOUND AGE: 20 weeks 0 days. GESTATION AGE: 20 weeks 2 days. ESTIMATED WEIGHT: 326 g GROWTH PERCENTILE: 30 % BPD: 4.59 corresponding to 20 weeks 0 days. OFD: 5.80 cm corresponding to 20 weeks 0 days. HC: 16.43 cm corresponding to 19 weeks 2 days. AC: 14.71 cm corresponding to 20 weeks 0 days. FL: 3.27 cm corresponding to 20 weeks 2 days. CEREBELLUM: 1.94 cm corresponding to 20 weeks 0 days. HUMERUS: 3.14 cm corresponding to 20 weeks 4 days. HC/AC: 1.12 CI: 79% FL/BPD: 71% FL/AC: 22% IMPRESSION: Single living IUP with an ultrasound age of 20 weeks 0 days. Reviewed, Interpreted and Dictated by Durga Alberts III, MD Transcribed by Sinai Wu Authenticated and [facility]
== END ==
PROVIDERS: PCP Obstetrics & Gynecology; Visit Provider Obstetrics & Gynecology
DX: Z34.90 Encounter for supervision of normal pregnancy, unspecified, unspecified trimester (principal); Z3A.20 20 weeks gestation of pregnancy
CPT/HCPCS: 76811

== ENCOUNTER 2022-11-13 13:50 | Outpatient (CLI) | payer MEDICAID, SELFPAY ==
[2022-11-13 14:03] VITALS: BMI 29.6
[2022-11-13 14:08] LABS: Microscopic, Urine URINE MICROSCOPIC (MICROSCOPIC)
[2022-11-13 14:09] LABS: Appearance,Urine CLEAR (Clear); Bilirubin,Urine Negative (Negative); Blood, Urine 1+ (Negative); Color,Urine YELLOW (Yellow); Glucose,Urine (UA) Negative (Negative); Ketones,Urine Negative (Negative); Leukocyte Esterase,Urine 2+ (Negative); Nitrate,Urine Negative (Negative); Protein,Urine Negative (Negative); Specific Gravity, Urine <= 1.005 (1.005-1.030); Urobilinogen,Urine 0.2 EU/dl (0.2)
[2022-11-13 14:19] LABS: Bacteria,Urine 1+ /lpf
[2022-11-13 14:21] LABS: Barbiturates Screen,Urine Negative ng/ml (<200)
[2022-11-13 14:22] LABS: Benzodiazepines Screen,Urine Negative ng/ml (<200)
[2022-11-13 14:23] LABS: Amphetamine/Metha Screen,Urine Negative ng/ml (<1000); Cocaine Screen,Urine Negative ng/ml (<300)
[2022-11-13 14:24] LABS: Cannabinoid Screen,Urine Negative ng/ml (<50); Methadone Screen,Urine Negative ng/ml (<300)
[2022-11-13 14:25] LABS: Phencyclidine Screen,Urine Negative ng/ml (<25)
[2022-11-13 14:26] LABS: Opiate Screen,Urine Negative ng/ml (<300)
[2022-11-13 14:35] VITALS: BMI 29.6
== END 2022-11-13 15:50 | disposition home or self-care (01) ==
LOC: OBOUT 13:51 → OB 13:52
PROVIDERS: Obstetrics & Gynecology; Visit Provider Obstetrics & Gynecology
DX: O26.899 Other specified pregnancy related conditions, unspecified trimester (principal); Z3A.23 23 weeks gestation of pregnancy; R30.9 Painful micturition, unspecified; R10.2 Pelvic and perineal pain
CPT/HCPCS: 80305; 81001; 87086; 87088; 87186; G0463; J0696

== ENCOUNTER → 2022-12-11 09:05 | Outpatient (CLI) | payer MEDICAID, SELFPAY ==
[2022-12-11 09:36] LABS: Basophils % 0.3 % (0.1-2.0); Eosinophils # 0.1 K/mm3 (0.0-0.4); Eosinophils % 1.1 % (0.1-12.0); Hematocrit 32.3 % (37.0-47.0); Hemoglobin 10.2 g/dL (12.2-16.2); Lymphocytes # 1.7 K/mm3 (0.7-4.5); Lymphocytes % 24.5 % (10-50); Mean Corpuscular HGB Conc 31.6 g/dL (31.8-35.4); Mean Corpuscular Hemoglobin 26.4 pg (27.0-31.2); Mean Corpuscular Volume 83.5 fl (81-99); Mean Platelet Volume 8.5 fl (7.4-10.4); Monocytes # 0.4 K/mm3 (0.1-1.0); Monocytes % 5.2 % (1.7-9.3); Neutrophils # 4.7 K/mm3 (1.8-7.8); Neutrophils % 68.9 % (37.0-80.0); Platelet Count 238 K/mm3 (142-424); Red Blood Count 3.86 M/mm3 (4.20-5.40); Red Cell Distribution Width 13.7 % (11.5-17.5); White Blood Count 6.8 K/mm3 (4.8-10.8)
[2022-12-11 10:15] LABS: Glucose,Fasting 84 mg/dl (74-100)
[2022-12-11 11:24] LABS: Glucose 1 Hour 113 mg/dL (74-100)
== END ==
PROVIDERS: Visit Provider Obstetrics & Gynecology
DX: Z34.92 Encounter for supervision of normal pregnancy, unspecified, second trimester (principal); Z3A.27 27 weeks gestation of pregnancy
CPT/HCPCS: 36415; 82951; 85025

== ENCOUNTER → 2023-02-10 16:54 | Outpatient (CLI) | payer MEDICAID, SELFPAY | PROVIDERS: Visit Provider Obstetrics & Gynecology | DX: Z34.93 Encounter for supervision of normal pregnancy, unspecified, third trimester (principal); Z3A.36 36 weeks gestation of pregnancy | CPT/HCPCS: 86403 ==

== ENCOUNTER 2023-02-14 17:28 | Outpatient (CLI) | payer MEDICAID, SELFPAY ==
[2023-02-14 18:02] VITALS: BMI 31.7
[2023-02-14 18:16] VITALS: BP 142/95; PULSE 113; RESP 18; TEMP 36.9; O2SAT 98; BMI 31.7
[2023-02-14 18:19] LABS: Microscopic, Urine URINE MICROSCOPIC (MICROSCOPIC)
[2023-02-14 18:32] LABS: Appearance,Urine SL CLOUDY (Clear); Bilirubin,Urine Negative (Negative); Blood, Urine Negative (Negative); Color,Urine YELLOW (Yellow); Glucose,Urine (UA) TRACE (Negative); Ketones,Urine TRACE (Negative); Leukocyte Esterase,Urine Negative (Negative); Nitrate,Urine Negative (Negative); Protein,Urine Negative (Negative); Specific Gravity, Urine 1.025 (1.005-1.030)
[2023-02-14 18:41] LABS: Fetal Membrane Rupture (Rapid) Negative (Negative)
[2023-02-14 18:42] LABS: Bacteria,Urine 2+ /lpf; Squamous Epithelial Cell,Urine 20-50 #/hpf (0-5)
[2023-02-14 18:44] LABS: Benzodiazepines Screen,Urine Negative ng/ml (<200)
[2023-02-14 18:45] LABS: Amphetamine/Metha Screen,Urine Negative ng/ml (<1000); Barbiturates Screen,Urine Negative ng/ml (<200)
[2023-02-14 18:46] LABS: Cannabinoid Screen,Urine Negative ng/ml (<50)
[2023-02-14 18:47] LABS: Cocaine Screen,Urine Negative ng/ml (<300); Methadone Screen,Urine Negative ng/ml (<300)
[2023-02-14 18:48] LABS: Opiate Screen,Urine Negative ng/ml (<300)
[2023-02-14 18:49] LABS: Phencyclidine Screen,Urine Negative ng/ml (<25)
[2023-02-14 19:07] LABS: Basophils % 0.1 % (0.1-2.0); Eosinophils # 0.1 K/mm3 (0.0-0.4); Eosinophils % 0.9 % (0.1-12.0); Hemoglobin 9.9 g/dL (12.2-16.2); Lymphocytes # 1.5 K/mm3 (0.7-4.5); Lymphocytes % 22.2 % (10-50); Mean Corpuscular HGB Conc 31.9 g/dL (31.8-35.4); Mean Corpuscular Hemoglobin 24.5 pg (27.0-31.2); Mean Corpuscular Volume 76.9 fl (81-99); Mean Platelet Volume 9.2 fl (7.4-10.4); Monocytes # 0.5 K/mm3 (0.1-1.0); Monocytes % 6.9 % (1.7-9.3); Neutrophils # 4.8 K/mm3 (1.8-7.8); Platelet Count 205 K/mm3 (142-424); Red Blood Count 4.03 M/mm3 (4.20-5.40); Red Cell Distribution Width 15.9 % (11.5-17.5); White Blood Count 6.9 K/mm3 (4.8-10.8)
[2023-02-14 19:18] LABS: Chloride 104 mmol/L (98-107); Potassium 3.6 mmoL/L (3.5-5.1); Sodium 135 mmol/L (136-145)
[2023-02-14 19:20] LABS: Blood Urea Nitrogen 5 mg/dl (7-17); Creatinine Clearance Estimated 256 mL/min (50-200); Estimated Glomerular Filt Rate 193 ml/min (>60); GFR (African American) 233 ML/MIN (>60)
[2023-02-14 19:21] LABS: Alanine Aminotransferase 22 U/L (12-78); Albumin Level 3.3 g/dl (3.5-5.0); Albumin/Globulin Ratio 1.2 (1.1-1.8); Alkaline Phosphatase 157 U/L (38-126); Anion Gap 10.6 mEq/L (5-15); Aspartate Amino Transferase 28 U/L (14-36); Bilirubin,Total 0.2 mg/dl (0.2-1.3); Calcium 8.5 mg/dl (8.4-10.2); Carbon Dioxide 24 mmol/L (22.0-30.0); Globulin 2.8 g/dL (1.3-3.2); Glucose 74 mg/dl (74-100); Total Protein,Serum 6.1 g/dl (6.3-8.2)
== END 2023-02-14 19:50 | disposition home or self-care (01) ==
LOC: OBOUT 17:29 → OB 17:32
PROVIDERS: Visit Provider Obstetrics & Gynecology
DX: O47.03 False labor before 37 completed weeks of gestation, third trimester (principal); Z3A.36 36 weeks gestation of pregnancy
CPT/HCPCS: 36415; 59025; 80053; 80305; 81001; 84112; 85025; 87086; G0463

== ENCOUNTER 2023-03-07 10:32 | Inpatient (IN) | payer MEDICAID, SELFPAY ==
[2023-03-07] VITALS (22 sets, daily range): BP systolic 131–161; BP diastolic 79–102; PULSE 98–106; RESP 17–20; TEMP 36.8–37.1; O2SAT 98–99; BMI 33.6
[2023-03-07 07:41] LABS: Microscopic, Urine URINE MICROSCOPIC (MICROSCOPIC)
[2023-03-07 07:43] LABS: Appearance,Urine CLEAR (Clear); Bilirubin,Urine Negative (Negative); Blood, Urine TRACE-I (Negative); Color,Urine YELLOW (Yellow); Glucose,Urine (UA) Negative (Negative); Ketones,Urine Negative (Negative); Leukocyte Esterase,Urine TRACE (Negative); Nitrate,Urine Negative (Negative); Protein,Urine Negative (Negative); Urobilinogen,Urine 0.2 EU/dl (0.2)
[2023-03-07 07:54] LABS: Amphetamine/Metha Screen,Urine Negative ng/ml (<1000)
[2023-03-07 07:55] LABS: Bacteria,Urine Trace /lpf; Barbiturates Screen,Urine Negative ng/ml (<200); RBC,Urine Occasional #/hpf (0-3); WBC,Urine Occasional #/hpf (0-3)
[2023-03-07 07:56] LABS: Benzodiazepines Screen,Urine Negative ng/ml (<200); Cannabinoid Screen,Urine Negative ng/ml (<50)
[2023-03-07 07:57] LABS: Cocaine Screen,Urine Negative ng/ml (<300)
[2023-03-07 07:58] LABS: Methadone Screen,Urine Negative ng/ml (<300); Opiate Screen,Urine Negative ng/ml (<300)
[2023-03-07 07:59] LABS: Phencyclidine Screen,Urine Negative ng/ml (<25)
[2023-03-07 08:51] LABS: Basophils % 0.2 % (0.1-2.0); Eosinophils % 0.6 % (0.1-12.0); Hematocrit 32.5 % (37.0-47.0); Lymphocytes # 1.5 K/mm3 (0.7-4.5); Lymphocytes % 22.4 % (10-50); Mean Corpuscular HGB Conc 30.8 g/dL (31.8-35.4); Mean Corpuscular Hemoglobin 23.7 pg (27.0-31.2); Mean Corpuscular Volume 77.1 fl (81-99); Mean Platelet Volume 9.1 fl (7.4-10.4); Monocytes # 0.4 K/mm3 (0.1-1.0); Monocytes % 5.6 % (1.7-9.3); Neutrophils # 4.9 K/mm3 (1.8-7.8); Neutrophils % 71.3 % (37.0-80.0); Platelet Count 233 K/mm3 (142-424); Red Blood Count 4.22 M/mm3 (4.20-5.40); Red Cell Distribution Width 16.8 % (11.5-17.5); White Blood Count 6.8 K/mm3 (4.8-10.8)
[2023-03-07 09:02] LABS: Activated Partial Thrombo Time 25.5 seconds (22.8-30.6); Fibrinogen 412 mg/dL (229.9-363.5); INR 0.91 (0.9-1.1); Prothrombin Time 9.9 seconds (10.1-12.5)
[2023-03-07 09:06] LABS: Alanine Aminotransferase 23 U/L (12-78); Anion Gap 10.8 mEq/L (5-15); Aspartate Amino Transferase 25 U/L (14-36); Blood Urea Nitrogen 7 mg/dl (7-17); Calcium 8.1 mg/dl (8.4-10.2); Carbon Dioxide 23 mmol/L (22.0-30.0); Chloride 105 mmol/L (98-107); Creatinine Clearance Estimated 217 mL/min (50-200); Estimated Glomerular Filt Rate 149 ml/min (>60); GFR (African American) 180 ML/MIN (>60); Glucose 85 mg/dl (74-100); Potassium 3.8 mmoL/L (3.5-5.1); Sodium 135 mmol/L (136-145); Uric Acid 3.2 mg/dl (2.5-6.2)
[2023-03-07 09:10] LABS: D-Dimer 1.21 ug/mL (0.0-0.5)
--- NOTE | 2023-03-07 11:15 | EXP.OB.APHP ---
OB - H&P: HPI Antepartum History of Present Illness Chief complaint: Headache, elevated blood pressure History of present illness: Ms Benedicto Pascual is a 27 yo at 39w4d who presents to [facility] L&D with complaint of headache and elevated blood pressure at home. She reports history of dental problems n the past. She woke up with a toothache around 0400 this morning. She took Tylenol and went back to bed. She then woke up at 0600 with a horrible headache... toothache had resolved. She took her BP at home and it was 150's/100's. Baby is active. She has had good care. She has history of gestational hypertension with last baby. History of Present Criteria for establishing EDC:: LMP confirmed by 1st trimester US care: good care Ultrasounds: normal mid trimester US Obstetrical complications: none Medical complications: none Labs Blood type: A (+) positive Rubella: immune RPR/VDRL: nonreactive GBS status: negative HBsAG: negative PFSH PFSH Disclaimer: The information contained in this section may have been updated after the patient was seen, as this information can be updated by other users. Medical History (Updated 03/07/23 @ 11:23 by Antoinette Vela DO) 39 weeks gestation of Alpha thalassemia silent carrier Anemia in Gestational hypertension HGSIL (high grade squamous intraepithelial lesion) on Pap smear of cervix History of induced hypertension Nausea/vomiting in Paresthesia of both hands Surgical History History of thumb surgery Social History Smoking Status: Never smoker alcohol intake: never substance use type: denies use current occupational status: employed Travel in the last 8 weeks: None household members: family housing: house Review of Systems Review of Systems Review of systems:: pertinent systems reviewed and negative unless documented below Constitutional Constitutional: Reports headache(s) ENT Ears, Nose, Mouth, and Throat: Reports dental pain and Reports headache(s) *Neurologic Neurologic: Reports headache(s) Meds Home Medications and Allergies Home Medications Medication Instructions Recorded Confirmed Type ferrous sulfate 325 mg (65 mg 325 mg PO Q48H Supplement 03/07/23 03/07/23 History iron) tablet vit no.95-ferrous 1 tab PO DAILY Supplement 03/07/23 03/07/23 History fumarate 28 mg-folic acid 800 mcg tablet () New Prescriptions to Start Prescriptions: Allergies Allergy/AdvReac Type Severity Reaction Status Date / Time penicillin G [PENICILLIN G] Allergy Intermediate I-RASH Verified 03/06/23 08:33 Sulfa (Sulfonamide Allergy Intermediate I-RASH Verified 03/06/23 08:33 Antibiotics) [SULFA (SULFONAMIDE ANTIBIOTICS)] OB - H&P: Exam Physical Exam Vital signs: Temp Pulse Resp BP Pulse Ox O2 Del Method 98.3 F 101 H 20 158/100 H 98 Room Air 03/07/23 07:52 03/07/23 07:52 03/07/23 07:52 03/07/23 07:52 03/07/23 07:52 03/07/23 07:52 Constitutional no acute distress and cooperative Routine HEENT Exam Head: Present normocephalic and atraumatic Eye: Absent conjunctivae pink ENT: Present mucous membranes moist Routine Neck Exam Present full ROM Routine Respiratory Exam Present CTA bilaterally and normal respiratory effort Routine Cardiovascular Exam Present RRR Routine Abdominal Exam Present soft (Gravid); Absent tenderness Routine Rectal Exam Patient deferred: visual exam Routine Exam External: Present normal urethra appearance; Absent erythema, tenderness, lesions or lacerations Routine Extremities Exam Present full ROM; Absent edema or calf tenderness Routine Neurological Exam Present alert, oriented X3 and moving all extremities Routine Psychiatric Exam Present normal affect and cooperative Detailed Labor and Deliv
--- NOTE | 2023-03-08 08:32 | EXP.ANES.CKL ---
[facility] Disclaimer: The information contained in this section may have been updated after the patient was seen, as this information can be updated by other users. Medical History (Updated 03/07/23 @ 19:38 by Charlene Garrett RN) 39 weeks gestation of Alpha thalassemia silent carrier Anemia in Gestational hypertension HGSIL (high grade squamous intraepithelial lesion) on Pap smear of cervix History of hemorrhage History of induced hypertension Nausea/vomiting in Paresthesia of both hands Surgical History History of thumb surgery Social History (Updated 03/07/23 @ 19:40 by Charlene Garrett RN) Smoking Status: Never smoker alcohol intake: never substance use type: denies use current occupational status: employed Travel in the last 8 weeks: None household members: family housing: house marital status: number of children: 1 do you feel safe at home: Yes victim of physical abuse: No victim of emotional abuse: No victim of sexual abuse: No [facility] Anesthesia Checklist Patient Identification Patient Identification: Verbal (Name & ) Structural Data Admitted From: Inpatient Planned Operative Procedure/s: labor epidural Additional verifications Anesthesia Reactions: No Airway Assessment Mallampati Score:: Class I C-Spine Mobility Assessed: Yes Dentition: Good Dentition Neurological Assessment Level of Consciousness: Awake, Alert and Appropriate Anesthesia Plan Anesthesia Risk discussed: Yes Anesthesia Plan: Verified ASA Class: II Anesthesia Type: Epidural
--- NOTE | 2023-03-08 14:01 | EXP.DN ---
Delivery Note Delivery Date:: 03/08/23 Delivery Time:: 13:47 Anesthesia Type: Epidural Was labor medically induced?: Yes Induction method: per misoprostol protocol Gestational age (weeks): 39 Infant delivered prior to 39 weeks?: No Gender: Female at 1 minute: 9 at 5 minutes: 9 Delivery Procedure:: Mom complete with epidural. Pushed for approximately 24 minutes. Head delivered spontaneously over intact perineum in LILLIAN position. No nuchal cord. Anterior shoulder delivered with gentle downward pressure. Posterior shoulder and remainder of body delivered spontaneously. Baby placed on maternal abdomen, mouth and nares bulb suctioned, warmed/dried and stimulated. Delayed cord clamping was performed for 60 seconds. Cord was clamped and cut by father of baby. Cord blood was obtained. Placenta delivered spontaneously and intact. No lacerations. Mom and baby were skin to skin and doing well after delivery. Live female baby (baby's name is Glendy) APGARs 9, 9 EBL 200 mL Placental Delivery Description: Spontaneous
[2023-03-09 06:47] LABS: Basophils % 0.1 % (0.1-2.0); Eosinophils # 0.1 K/mm3 (0.0-0.4); Eosinophils % 0.8 % (0.1-12.0); Hemoglobin 7.9 g/dL (12.2-16.2); Lymphocytes # 1.2 K/mm3 (0.7-4.5); Lymphocytes % 10.8 % (10-50); Mean Corpuscular HGB Conc 30.3 g/dL (31.8-35.4); Mean Corpuscular Hemoglobin 23.4 pg (27.0-31.2); Mean Corpuscular Volume 77.3 fl (81-99); Monocytes # 0.5 K/mm3 (0.1-1.0); Monocytes % 4.6 % (1.7-9.3); Neutrophils # 9.2 K/mm3 (1.8-7.8); Neutrophils % 83.7 % (37.0-80.0); Platelet Count 172 K/mm3 (142-424); Red Blood Count 3.37 M/mm3 (4.20-5.40); Red Cell Distribution Width 16.8 % (11.5-17.5)
--- NOTE | 2023-03-09 07:59 | EXP.ACUTE.PN ---
Subjective *Date: 03/09/23 *Time: 07:59 Interval history: PPD # 1 s/p Resting comfortably in bed. Pain controlled. She admits tooth pain is better with Tylenol and Ibuprofen. She is formula feeding. Lochia a little more than expected this morning but had been within normal limits up to this morning. Voiding without difficulty and passing flatus. Tolerating regular diet. Ambulating well ad yamilet. Denies fever/chills, chest pain and shortness of breath. No headaches, dizziness or lightheadedness. Medical Exam Vital signs and Labs for Last 24 Hours: Intake and Output 03/08/23 03/08/23 03/09/23 15:59 23:59 07:59 Output Total 1300 / 1300 Balance -1300 / -1300 Output: Output, Urine Amount (Catheter) 1300 / 1300 Hart 1300 / 1300 Laboratory Results - last 24 hr 03/09/23 06:10: WBC 11.0 H D, RBC 3.37 L, Hgb 7.9 L, Hct 26.0 L, MCV 77.3 L, MCH 23.4 L, MCHC 30.3 L, RDW 16.8, Plt Count 172 D, MPV 9.0, Neut % (Auto) 83.7 H, Lymph % (Auto) 10.8, [place] % (Auto) 4.6, Eos % (Auto) 0.8, Baso % (Auto) 0.1, Neut # (Auto) 9.2 H, Lymph # (Auto) 1.2, [place] # (Auto) 0.5, Eos # (Auto) 0.1, Baso # (Auto) 0.0 I & O for Labs for Last 24 Hours: Intake & Output 03/06/23 03/07/23 03/08/23 03/09/23 23:59 23:59 23:59 23:59 Output Total 1300 / 1300 Balance -1300 / -1300 Weight 178 lb Head: Present atraumatic and normocephalic ENT: Present normal exam Neck: Present normal inspection and full ROM Respiratory: Present CTA bilaterally and normal respiratory effort Cardiac: Present Reg Rate and Rhythm GI: Present soft; Absent distention or tenderness Comments:: Uterine fundus firm and below umbilicus Rectal (female): Present deferred (female): Present deferred Extremities: Present normal inspection and full ROM; Absent edema or calf tenderness Neuro: Present alert, awake, oriented x 3 and moves all extremities Assessment and Plan *Assessment and plan (1) 39 weeks gestation of : Status: Acute Category: Medical Code(s): Z3A.39 - 39 weeks gestation of (2) Status post normal vaginal delivery: Status: Acute Category: Medical (3) Gestational hypertension: Status: Acute Qualifiers: Trimester: third trimester Qualified Code(s): O13.3 - Gestational [-induced] hypertension without significant proteinuria, third trimester Category: Medical Code(s): O13.9 - Gestational [-induced] hypertension without significant proteinuria, unspecified trimester (4) Anemia in : Status: Acute Qualifiers: Trimester: third trimester Qualified Code(s): O99.013 - Anemia complicating , third trimester Category: Medical Code(s): O99.019 - Anemia complicating , unspecified trimester (5) Alpha thalassemia silent carrier: Status: Acute Category: Medical Code(s): D56.3 - Thalassemia minor (6) Acute blood loss anemia: Status: Acute Category: Medical Code(s): D62 - Acute posthemorrhagic anemia (7) History of hemorrhage: Status: Acute Category: Medical Code(s): Z87.59 - Personal history of other complications of , childbirth and the puerperium Plan Continue routine care BP has been mild range and normotensive since delivery, asymptomatic TXA 1 gram ordered (this will be the second dose since delivery) Venofer 200 mg IV x 1 dose Encouraged increased ambulation Plan d/c home later today or tomorrow
[2023-03-09 08:30] VITALS: BP 122/70; PULSE 108; RESP 18; TEMP 36.7; O2SAT 97
[2023-03-09 15:52] VITALS: BP 126/72; PULSE 108; RESP 18; TEMP 36.7; O2SAT 98
--- NOTE | 2023-03-09 15:58 | EXP.DC.SUM ---
General Admission date:: 03/07/23 Discharge date: 03/09/23 HPI HPI HPI: PPD # 1 s/p Resting comfortably in bed. Pain controlled. She admits tooth pain is better with Tylenol and Ibuprofen. She is formula feeding. Lochia a little more than expected this morning but had been within normal limits up to this morning. Voiding without difficulty and passing flatus. Tolerating regular diet. Ambulating well ad yamilet. Denies fever/chills, chest pain and shortness of breath. No headaches, dizziness or lightheadedness. Hospital Course Hospital Course Hospital Course: Ms Benedicto Pascual is a 27 yo at 39w4d who presented to [facility] L&D with complaint of headache and elevated blood pressure at home. She reported history of dental problems in the past. She woke up with a toothache around 0400 this morning. She took Tylenol and went back to bed. She then woke up at 0600 with a horrible headache... toothache had resolved. She took her BP at home and it was 150's/100's. Baby is active. She has had good care. History of gestational hypertension with last baby. She underwent induction of labor with Cytotec followed by Pitocin. She had a normal spontaneous vaginal delivery on 03/08/23 at 1347. She delivered a live female baby, Glendy, weighing 7 lb 6 oz, APGARs 9, 9. EBL 200 mL. She did well . Light lochia. Formula feeding. Pain controlled. She admits tooth pain is better with Tylenol and Ibuprofen. Voiding without difficulty and passing flatus. Tolerating regular diet. Ambulating well ad yamilet. Denies fever/chills, chest pain and shortness of breath. No headaches, dizziness or lightheadedness. She received TXA for history of hemorrhage. She also received Venofer 200 mg IV x 1 dose for acute blood loss anemia. Discharged home on PPD # 1 doing well with instructions to follow-up in the office in 2 weeks. Exam Data for Last 24 hours Vital signs and Labs for Last 24 Hours: Temp Pulse Resp BP Pulse Ox O2 Del Method 98.0 F 108 H 18 126/72 98 Room Air 03/09/23 15:52 03/09/23 15:52 03/09/23 15:52 03/09/23 15:52 03/09/23 15:52 03/09/23 15:52 Laboratory Results - last 24 hr 03/09/23 06:10: WBC 11.0 H D, RBC 3.37 L, Hgb 7.9 L, Hct 26.0 L, MCV 77.3 L, MCH 23.4 L, MCHC 30.3 L, RDW 16.8, Plt Count 172 D, MPV 9.0, Neut % (Auto) 83.7 H, Lymph % (Auto) 10.8, [place] % (Auto) 4.6, Eos % (Auto) 0.8, Baso % (Auto) 0.1, Neut # (Auto) 9.2 H, Lymph # (Auto) 1.2, [place] # (Auto) 0.5, Eos # (Auto) 0.1, Baso # (Auto) 0.0 I & O for Last 24 hours: Intake & Output 03/06/23 03/07/23 03/08/23 03/09/23 23:59 23:59 23:59 23:59 Output Total 1300 / 1300 Balance -1300 / -1300 Weight 178 lb Constitutional Constitutional: no acute distress *Routine HEENT Exam Head: Present normocephalic and atraumatic Eye: Absent conjunctivae pink ENT: Present mucous membranes moist *Routine Neck Exam Neck: Present full ROM *Routine Respiratory Exam Respiratory: Present CTA bilaterally and normal respiratory effort *Routine Cardiovascular Exam Cardiovascular: Present RRR *Routine Abdominal Exam Abdominal: Present soft and normoactive bowel sounds; Absent tenderness or distended Comments: Uterine fundus firm, below umbilicus *Routine Rectal Exam Patient deferred: visual exam *Routine Exam Patient deferred: external exam *Routine Neurological Exam Neurological: Present alert, oriented X3 and moving all extremities Routine Psychiatric Exam Psychiatric: Present normal affect and cooperative Results Data Completed and Pending Labs on day of discharge: Labs from last 24 hours 03/09/23 06:10 WBC 11.0 H D RBC 3.37 L Hgb 7.9 L Hct 26.0 L MCV 77.3 L MCH 23.4 L MCHC 30.3 L RDW 16.8 Plt Count 172 D MPV 9.0 Neut % (Auto) 83.7 H Lymph % (Auto) 10.8 [place] % (Auto) 4.6 Eos % (Auto) 0.8 Baso % (Auto) 0.1 Neut # (Auto) 9.2 H Lymph # (Auto) 1.2 [place] # (Auto) 0.5 Eos # (Auto) 0.1 Baso # (Auto) 0.0
== END 2023-03-09 18:00 | disposition home or self-care (01) | DRG 806 ==
LOC: OBOUT 10:32 → OB 10:32
PROVIDERS: Admitting Provider Obstetrics & Gynecology; Visit Provider Obstetrics & Gynecology
DX: O99.02 Anemia complicating childbirth (principal); D62 Acute posthemorrhagic anemia; Z37.0 Single live birth; Z3A.39 39 weeks gestation of pregnancy; D56.3 Thalassemia minor; O13.4 Gestational [pregnancy-induced] hypertension without significant proteinuria, complicating childbirth; O90.81 Anemia of the puerperium
CPT/HCPCS: 59409; 36415; 59025; 80048; 80305; 81001; 84450; 84460; 84550; 85025; 85378; 85384; 85610; 85730; 86850; 94761; G0283; J0595; J1756; J2405

== ENCOUNTER 2023-03-10 01:41 | Outpatient (CLI) | payer MEDICAID, SELFPAY ==
[2023-03-10] VITALS (11 sets, daily range): BP systolic 129–159; BP diastolic 75–102; PULSE 83–113; RESP 17; TEMP 36.3; O2SAT 97–100; BMI 31.5
--- NOTE | 2023-03-10 01:46 | PC.NURSE ---
Patient arrived to the unit at this time via wheelchair and [id number]. Patient has complaints of saturating a peach pad (hospital provided), light headedness, dizziness, and baseball sized clot. Patient denies headache, blurred vision and aura.
[2023-03-10 02:22] LABS: Hemoglobin 7.2 g/dL (12.2-16.2)
--- NOTE | 2023-03-10 03:07 | PC.NURSE ---
Patient sitting up in bed, alert and awake. Patient voices no needs at this time.
--- NOTE | 2023-03-10 03:59 | PC.NURSE ---
Patient up to the bathroom at this time. A small half dollar size clot is noted and lochia is a small amount. Patients fundus is u/2 and firm. Patient's vitals have remained within normal limits.
--- NOTE | 2023-03-10 04:52 | PC.NURSE ---
Patient is awake and alert. No needs voiced. Vitals remain within normal limits. Patient voices no questions.
== END 2023-03-10 05:53 | disposition home or self-care (01) ==
LOC: OBOUT 01:42 → OB 01:46
PROVIDERS: PCP Obstetrics & Gynecology; Visit Provider Obstetrics & Gynecology
DX: O72.1 Other immediate postpartum hemorrhage (principal); R42 Dizziness and giddiness; R55 Syncope and collapse; Z87.59 Personal history of other complications of pregnancy, childbirth and the puerperium
CPT/HCPCS: 85014; 85018

== ENCOUNTER 2023-11-23 14:25 | Emergency (ER) | payer MEDICAID, SELFPAY ==
[2023-11-23 15:35] VITALS: BP 131/89; PULSE 93; RESP 20; TEMP 37; O2SAT 100; BMI 27.3
--- NOTE | 2023-11-23 15:39 | EXP.UTC ---
Discharge Plan Disposition Patient Disposition: Home, Self-Care Condition: Good Prescriptions Prescriptions: New azithromycin [Zithromax Z-Sánchez] 250 mg tablet See Rx Instructions .ROUTE .COMPLEX 5 Days Qty: 6 0RF Rx Instructions: For 250 mg dose pack: take 500 mg today (day 1), then 250 mg for 4 days (days 2-5) methylprednisolone [Medrol (Sánchez)] 4 mg tablets,dose pack See Rx Instructions .Route .COMPLEX 6 Days Qty: 21 0RF Rx Instructions: taper pack; No Action levonorgestrel-ethinyl estrad [Aviane] 0.1-20 mg-mcg tablet 1 tab PO DAILY Qty: 28 11RF PNV cmb#95-ferrous fumarate-FA [] 28 mg iron- 800 mcg Tablet 1 tab PO DAILY Referrals Follow up/Referrals: Provider,Referral, MD [Primary Care Provider] - See instructions Activity Restrictions/Add. Instructions Additional Instructions/Restrictions: Take medication as prescribed Make sure to drink plenlty of fluids Follow up with your Family Doctor if no improvement or any worsenign of symptoms Return if needed Clinical Impressions Clinical Impression: Otitis media Qualifiers: Otitis media type: unspecified Laterality: right Qualified Code(s): H66.91 - Otitis media, unspecified, right ear Instructions Patient Instructions: Ear Infections (Alternative Therapy), Middle Ear Infection Discharge ED Provider: Lissette Dale [facility] General Stated complaint: Pain in R ear, fever, headache Mode of Arrival: Ambulatory Source of Information: Patient Limitations: No Limitations Time Seen by Provider: 11/23/23 15:39 Description of Symptoms (Recalled from Triage Doc. by RN): PATIENT C/O PAIN IN RIGHT EAR AND BEHIND RIGHT EYE, HEADACHE, AND RUNNY NOSE X 4 DAYS HEENT Symptoms (Recalled from RN notes): Yes Resp Symptoms (Recalled from RN notes): No Skin Symptoms (Recalled from RN notes): No MS Symptoms (Recalled from RN notes): No Functional Status (Recalled from RN notes): WNL History of Present Illness Provider Complaint: Patient states that she has been having pain in right ear, sinus congestion and pressure, sinus headache and states that she has had a little burning with urination and wanted to get checked for UTI Related Data Home Medications Medication Instructions Recorded Confirmed vit no.95-ferrous 1 tab PO DAILY Supplement 09/09/23 10/19/23 fumarate 28 mg-folic acid 800 mcg tablet () Previous Rx's Medication Instructions Recorded levonorgestrel-ethinyl estradiol 1 tab PO DAILY #28 tabs 04/16/23 0.1 mg-20 mcg tablet (Aviane) azithromycin 250 mg tablet See Rx Instructions PO .COMPLEX 5 11/23/23 (Zithromax Z-Sánchez) days #6 tabs methylprednisolone 4 mg tablets in See Rx Instructions .Route 11/23/23 a dose pack (Medrol (Sánchez)) .COMPLEX 6 days #21 tabs Allergies Allergy/AdvReac Type Severity Reaction Status Date / Time penicillin G [PENICILLIN G] Allergy Intermediate I-RASH Verified 04/16/23 15:41 Sulfa (Sulfonamide Allergy Intermediate I-RASH Verified 04/16/23 15:41 Antibiotics) [SULFA (SULFONAMIDE ANTIBIOTICS)] Worker's Comp Is this a Worker's Comp case?: No [facility] Disclaimer: The information contained in this section may have been updated after the patient was seen, as this information can be updated by other users. Medical History Acute blood loss anemia Alpha thalassemia silent carrier HGSIL (high grade squamous intraepithelial lesion) on Pap smear of cervix History of gestational hypertension History of hemorrhage Paresthesia of both hands Surgical History History of thumb surgery Family History Other Asthma Cancer Coronary artery disease Diabetes Hypertension Kidney disease No significant family history Social History Smoking Status: Never smoker alcohol intake: never substance use type: denies use current occupational status: employed Travel in the last 8 weeks: None household members: family housing: house marital status: number of children: 1 do you feel safe at home: Yes victim of physical abuse: No victim of emotional abuse: No victim of sexual abuse: No ROS Obtained: Yes All systems reviewed & no additional complaints except as documented and Yes Systems reviewed as appropriate & no additional complaints except as documented Constitutional Constitutional: Reports system reviewed and no additional complaints, except as documented, Reports as per HPI and Reports headache(s) ENT Ears, Nose, Mouth, and Throat: Reports system reviewed and no additional complaints, except as documented, Reports as per HPI, Reports otalgia, Reports headache(s), Reports sinus pain and Reports sinus pressure Cardiovascular Cardiovascular: Reports system reviewed and no additional complaints, except as documented and Reports as per HPI Respiratory Respiratory: Reports system reviewed and no additional complaints, except as documented and Reports as per HPI Gastrointestinal Gastrointestingal: Reports system reviewed and no additional complaints, except as documented and as per HPI Genitourinary Female Genitourinary: Reports system reviewed and no additional complaints, except as documented, Reports as per HPI, Reports dysuria, Reports urinary frequency and Reports urinary urgency Neurologic Neurologic: Reports headache(s) Physical Exam General General appearance: alert and in no apparent distress ENT ENT exam: Present mucous membranes moist Expanded ENT Exam TM/Canal exam: Right TM: erythema and bulging Nose exam: Present sinus tenderness Respiratory Respiratory exam: Present normal lung sounds bilaterally; Absent respiratory distress or wheezes Cardiovascular Cardiovascular exam: Present regular rate, normal rhythm and normal heart sounds Abdominal Exam Abdominal exam: Present soft and normal bowel sounds; Absent distention or tenderness Neurological Exam Neurological exam: Present alert, oriented X3 and normal gait Medical Decision Making Vicente Inquiry Pt receiving controlled substance: No Vicente was queried for this patient: No Vital Signs: 11/23/23 15:35 Temperature 98.6 F Temperature Source Oral Pulse Rate [Left Brachial] 93 H Respiratory Rate 20 Blood Pressure [Left Arm] 131/89 Blood Pressure Mean [Left Arm] 103 Blood Pressure Source [Left Arm] Automatic Cuff Blood Pressure Position [Left Arm] Sitting 02 Sat by Pulse Oximetry 100 Oxygen Delivery Method Room Air Lab Data Lab results reviewed: Yes I reviewed the patient's lab results. Medical Decision Narrative: Patient denies states she just got off period yesterday
[2023-11-23 16:10] VITALS: BP 131/89; PULSE 93; RESP 20; TEMP 37; O2SAT 100
[2023-11-23 16:10] LABS: Apearance,Urine Clear (Clear); Bilirubin,Urine Negative (Negative); Blood, Urine Negative (Negative); Color,Urine Yellow (Yellow); Glucose,Urine (UA) Negative (Negative); Ketones,Urine Negative (Negative); PH,Urine 6.5 (5.0-8.5); Protein,Urine Negative (Negative); Specific Gravity, Urine 1.015 (1.005-1.030); UTC Leukocyte Esterase,Urine Trace (Negative); UTC Nitrate,Urine Negative (Negative); Urobilinogen,Urine 0.2 EU/dl (0.2)
== END 2023-11-23 16:14 | disposition home or self-care (01) ==
PROVIDERS: Emergency Provider Nurse Practitioner
DX: N39.0 Urinary tract infection, site not specified (principal); B96.89 Other specified bacterial agents as the cause of diseases classified elsewhere; H66.91 Otitis media, unspecified, right ear; R30.0 Dysuria; R35.0 Frequency of micturition
CPT/HCPCS: 81003; 87086; 99204; 99212; G0463

== ENCOUNTER 2024-05-30 13:42 | Outpatient (CLI) | payer MEDICAID, SELFPAY ==
[2024-05-30 18:36] LABS: Basophils % 0.6 % (0.1-2.0); Eosinophils % 0.6 % (0.1-12.0); Hematocrit 38.3 % (37.0-47.0); Hemoglobin 12.2 g/dL (12.2-16.2); Lymphocytes # 1.7 K/mm3 (0.7-4.5); Lymphocytes % 37.1 % (10-50); Mean Corpuscular Hemoglobin 25.1 pg (27.0-31.2); Mean Corpuscular Volume 78.7 fl (81-99); Mean Platelet Volume 10.2 fl (7.4-10.4); Monocytes # 0.2 K/mm3 (0.1-1.0); Monocytes % 5.4 % (1.7-9.3); Neutrophils # 2.5 K/mm3 (1.8-7.8); Neutrophils % 56.2 % (37.0-80.0); Platelet Count 296 K/mm3 (142-424); Red Blood Count 4.87 M/mm3 (4.20-5.40); Red Cell Distribution Width 15.5 % (11.5-17.5); White Blood Count 4.5 K/mm3 (4.8-10.8)
[2024-05-30 19:11] LABS: Alanine Aminotransferase 19 U/L (12-78); Albumin Level 4.6 g/dl (3.5-5.0); Albumin/Globulin Ratio 1.8 (1.1-1.8); Alkaline Phosphatase 50 U/L (38-126); Anion Gap 13.4 mEq/L (5-15); Aspartate Amino Transferase 22 U/L (14-36); Bilirubin,Total 0.4 mg/dl (0.2-1.3); Blood Urea Nitrogen 8 mg/dl (7-17); Calcium 9.5 mg/dl (8.4-10.2); Carbon Dioxide 28 mmol/L (22.0-30.0); Chloride 103 mmol/L (98-107); Chol/HDL Ratio 2.2 (1-3.5); Cholesterol 135 mg/dl (140-200); Estimated Glomerular Filt Rate 119 ml/min (>60); GFR (African American) 144 ML/MIN (>60); Globulin 2.6 g/dL (1.3-3.2); Glucose 92 mg/dl (74-100); HDL Cholesterol 61 mg/dl (40-60); Potassium 4.4 mmoL/L (3.5-5.1); Sodium 140 mmol/L (136-145); Total Protein,Serum 7.2 g/dl (6.3-8.2); Triglycerides 112 mg/dl (30-150); VLDL Cholesterol 22 mg/dL (0-40)
[2024-05-30 19:22] LABS: Direct LDL Cholesterol 68.18 mg/dL (100-129)
[2024-05-30 19:24] LABS: 25-OH Vitamin D, Total 35.5 ng/mL (30-100)
[2024-05-31 11:05] LABS: Iron 61 ug/dL (37-170)
[2024-05-31 11:14] LABS: Total Iron Binding Capacity 483 ug/dL (265-497)
== END 2024-05-30 23:59 | disposition home or self-care (01) ==
LOC: LAB.DROPOF 05-31 14:55
PROVIDERS: PCP Family Medicine; Visit Provider Family Medicine
DX: H66.91 Otitis media, unspecified, right ear (principal); R71.8 Other abnormality of red blood cells; L25.9 Unspecified contact dermatitis, unspecified cause; R21 Rash and other nonspecific skin eruption
CPT/HCPCS: 80050; 80053; 80061; 82306; 83540; 83550; 84443; 85025

== ENCOUNTER 2024-06-11 15:53 | Emergency (ER) | payer MEDICAID, SELFPAY ==
[2024-06-11 16:09] VITALS: BP 168/96; PULSE 114; RESP 18; TEMP 36.9; O2SAT 100; BMI 28.7
--- NOTE | 2024-06-11 16:09 | ED_ITS ---
Discharge Plan Disposition Patient Disposition: Home, Self-Care Condition: Good Prescriptions Prescriptions: New nystatin 100,000 unit/gram cream 1 applic topical BID 7 Days Qty: 15 0RF methylprednisolone 4 mg Tablets,Dose Pack 4 mg PO DIRECTED 6 Days Qty: 21 0RF Rx Instructions: Take 1 pack as directed for 6 days fluconazole 100 mg tablet 100 mg PO DAILY 3 Days Qty: 3 0RF No Action hydrocortisone 1 % lotion 1 applic topical BID PRN (Reason: allergic reaction) Qty: 120 0RF Referrals Follow up/Referrals: Mahogany Thapa MD [Referring] - See instructions Angeli Dietz APRN [Primary Care Provider] - See instructions Activity Restrictions/Add. Instructions Additional Instructions/Restrictions: Take the medications as directed. Apply the topical medication as directed. Follow up with your regular doctor. Don't start the oral steroids (medrol dose pack) until tomorrow. Follow up with the costume mistress (Dr. Thapa). I put in a referral. Her office phone number will be on this paperwork. GO TO THE ER FOR ANY WORSENING SYMPTOMS Clinical Impressions Clinical Impression: Contact dermatitis, Rash, skin Instructions Patient Instructions: Methylprednisolone, Fluconazole, Methylprednisolone Injection, Nystatin Topical Print Language Print Language: Citizen Of [place] Discharge ED Provider: Boone Fuentes [facility] General Stated complaint: rash Time Seen by Provider: 06/11/24 16:09 Related Data Previous Rx's ?Medication ?Instructions ?Recorded hydrocortisone 1 % lotion 1 applic topical BID PRN allergic 06/06/24 reaction #120 mL fluconazole 100 mg tablet 100 mg PO DAILY 3 days #3 tabs 06/11/24 methylprednisolone 4 mg tablets in 4 mg PO DIRECTED 6 days #21 tabs 06/11/24 a dose pack nystatin 100,000 unit/gram topical 1 applic topical BID 7 days #15 06/11/24 cream grams Allergies Allergy/AdvReac Type Severity Reaction Status Date / Time penicillin G (PENICILLIN G) Allergy Intermediate I-RASH Verified 06/06/24 16:06 Sulfa (Sulfonamide Allergy Intermediate I-RASH Verified 06/06/24 16:06 Antibiotics) (SULFA (SULFONAMIDE ANTIBIOTICS)) [facility] Disclaimer: The information contained in this section may have been updated after the patient was seen, as this information can be updated by other users. Medical History History of gestational hypertension Acute blood loss anemia History of hemorrhage Alpha thalassemia silent carrier HGSIL (high grade squamous intraepithelial lesion) on Pap smear of cervix Paresthesia of both hands Surgical History History of thumb surgery Family History Other Asthma Cancer Coronary artery disease Diabetes Hypertension Kidney disease No significant family history Social History Smoking Status: Never smoker alcohol intake: never substance use type: denies use current occupational status: employed Travel in the last 8 weeks: None household members: family housing: house marital status: number of children: 1 do you feel safe at home: Yes victim of physical abuse: No victim of emotional abuse: No victim of sexual abuse: No Have you lived/traveled outside [place] in past 30 days?: No Contact w/someone who lives/traveled outside US past 30 days?: No Exposure to someone with infectious disease in past 14 days?: No Do you have a fever (greater than 100.4 F or 38 C)?: No Have you tested positive for COVID-19: No Exposed to someone with COVID-19 in past 14 days?: No Do you have a sore throat?: No Do you have a cough?: No Do you have any weakness?: No Do you have any diarrhea?: No Are you experiencing any unusual bleeding?: No Do you have any muscle aches/pain?: No Do you have any abdominal pain?: No Are you experiencing loss of taste or smell?: No ROS Obtained: Yes All systems reviewed & no additional complaints except as documented Constitutional Constitutional: Denies chills and Denies fever(s) Eyes Eyes: Denies eye discharge ENT Ears, Nose, Mouth, and Throat: Denies dizziness, Denies otalgia and Denies sore throat Cardiovascular Cardiovascular: Denies chest pain Respiratory Respiratory: Denies shortness of breath, Denies chest congestion, Denies cough, Denies stridor and Denies wheezing Gastrointestinal Gastrointestingal: Denies nausea or vomiting Musculoskeletal Musculoskeletal: Reports system reviewed and no additional complaints, except as documented and Denies arthralgias Integumentary/Breasts Skin/Breast: Reports as per HPI and Reports rash Neurologic Neurologic: Denies dizziness and Denies paresthesias Allergic/Immunologic Allergic/Immunologic: Denies wheezing Physical Exam General General appearance: alert and in no apparent distress Head Head exam: atraumatic, normocephalic and normal inspection Eye Eye exam: Present normal appearance, PERRL and EOMI ENT ENT exam: Present normal exam, normal oropharynx, mucous membranes moist, TM's normal bilaterally and normal external ear exam Neck Neck exam: Present normal inspection, full ROM and trachea midline; Absent meningismus or lymphadenopathy Chest Chest inspection: Present normal inspection and symmetric chest wall rise; Absent tenderness Respiratory Respiratory exam: Present normal lung sounds bilaterally; Absent respiratory distress Cardiovascular Cardiovascular exam: Present regular rate and normal rhythm; Absent JVD Abdominal Exam Abdominal exam: Present soft and normal bowel sounds; Absent distention, tenderness or guarding Extremities Exam Extremities exam: Present normal inspection, full ROM and normal capillary refill; Absent calf tenderness Back Exam Back exam: Present normal inspection; Absent tenderness Neurological Exam Neurological exam: Present alert and oriented X3 Psychiatric Psychiatric exam: Present normal affect and normal mood Skin Skin exam: Present warm, dry, intact and normal color Lymphatic Lymphatic Findings: no adenopathy Medical Decision Making Medical Records Medical records reviewed: No I reviewed the patient's medical records. Screening: Per USPSTF and CDC recommendations, given the prevalence of disease in our region, it is our hospital?s policy to screen for HIV and viral Hepatitis for all patients aged 18 and over and those with ongoing risk factors. Vicente Inquiry Pt receiving controlled substance: No
[2024-06-11] MEDS: METHYLPREDNISOLONE SOD SUCC 125MG VIAL 125 MG IM (17:09)
[2024-06-11 17:35] VITALS: BP 168/96; PULSE 114; RESP 18; TEMP 36.9
[2024-06-11] MEDS: FLUCONAZOLE 200MG TABLET 200 MG PO (17:49)
== END 2024-06-11 17:51 | disposition home or self-care (01) ==
PROVIDERS: Emergency Provider Nurse Practitioner Family; PCP Family Medicine
DX: L25.9 Unspecified contact dermatitis, unspecified cause (principal)
CPT/HCPCS: 96372; 99213; G0381; J2919

== ENCOUNTER 2024-11-04 13:59 | Outpatient (CLI) | payer MEDICAID, SELFPAY ==
[2024-11-04 15:34] LABS: HCG,Quantitative 8326 mIU/ml (0-5.42)
[2024-11-05 08:12] LABS: Progesterone 13.6 ng/mL (.)
== END 2024-11-04 23:59 | disposition home or self-care (01) ==
LOC: LAB 14:02
PROVIDERS: PCP Family Medicine; Visit Provider Obstetrics & Gynecology
DX: Z32.01 Encounter for pregnancy test, result positive (principal)
CPT/HCPCS: 36415; 84144; 84702

== ENCOUNTER 2024-11-30 11:15 | Outpatient (CLI) | payer MEDICAID, SELFPAY | END 2024-11-30 23:59 | disposition home or self-care (01) | LOC: LAB.DROPOF 12-01 09:59 | PROVIDERS: PCP Student in an Organized Health Care Education/Training Program; Visit Provider Student in an Organized Health Care Education/Training Program | DX: O23.40 Unspecified infection of urinary tract in pregnancy, unspecified trimester (principal); Z3A.00 Weeks of gestation of pregnancy not specified | CPT/HCPCS: 87086 ==

== ENCOUNTER 2024-12-19 15:04 | Outpatient (CLI) | payer MEDICAID, SELFPAY ==
[2024-12-19 15:46] LABS: Basophils % 0.2 % (0.1-2.0); Eosinophils % 0.4 % (0.1-12.0); Hematocrit 29.8 % (37.0-47.0); Hemoglobin 9.7 g/dL (12.2-16.2); Immature Granulocytes # 0.01 10^3uL; Immature Granulocytes % 0.2 %; Lymphocytes # 1.2 K/mm3 (0.7-4.5); Lymphocytes % 23.2 % (10-50); Mean Corpuscular HGB Conc 32.6 g/dL (31.8-35.4); Mean Corpuscular Hemoglobin 24.3 pg (27.0-31.2); Mean Corpuscular Volume 74.7 fl (81-99); Monocytes # 0.4 K/mm3 (0.1-1.0); Neutrophils # 3.7 K/mm3 (1.8-7.8); Nucleated Red Blood Cells # 0 10^3/uL; Nucleated Red Blood Cells % 0 %; Platelet Count 267 K/mm3 (142-424); Red Blood Count 3.99 M/mm3 (4.20-5.40); Red Cell Distribution Width 16.4 % (11.5-17.5); Red Cell Distribution Width-SD 44.5 fL; White Blood Count 5.3 K/mm3 (4.8-10.8)
[2024-12-19 16:48] LABS: HIV Combo NEGATIVE (Negative)
[2024-12-19 16:56] LABS: Hepatitis C Ab Qual. W/ RFX NEGATIVE (Negative)
[2024-12-19 19:25] LABS: RPR W/RFX Titers Nonreactive (Nonreactive)
[2024-12-20 08:13] LABS: Hepatitis B Surface Antigen Negative (Negative)
== END 2024-12-19 23:59 | disposition home or self-care (01) ==
LOC: LAB 15:05
PROVIDERS: PCP Family Medicine; Visit Provider Obstetrics & Gynecology
DX: Z34.81 Encounter for supervision of other normal pregnancy, first trimester (principal); Z3A.00 Weeks of gestation of pregnancy not specified
CPT/HCPCS: 36415; 80074; 85025; 86592; 86762; 86850; 87340; 87389

== ENCOUNTER 2025-02-15 10:28 | Outpatient (CLI) | payer MEDICAID, SELFPAY ==
--- NOTE | 2025-02-15 10:30 | US_ITS ---
PROCEDURE: US OB /MATERNAL DETAIL CLINICAL INDICATION: 20 week anatomy COMPARISON: No exams were available for comparison FINDINGS: Transabdominal sonographic images of the pelvis were obtained. From her established due date she is . Single viable intrauterine gestation. Cephalic position. Placenta: Posteriorplacenta grade 1. There is a large placental Veras in inferior placenta. There is a 2nd smaller Veras superiorly. There is an average amount of fluid. The cervix appears satisfactory. Closed and measuring 3.23 cm in length. Complete survey performed and was unremarkable on the submitted images as in PACS. No discrete anomalies identified on survey imaging by technologist. Active fetus. Three-vessel cord with satisfactory umbilical cord insertion. 4- chamber heart noted. Situs, aortic arch, LVOT, RVOT, three-vessel view appear normal. Survey of brain & ventricles Unremarkable. Cerebellum, thalamus, choroid plexus, cisterna magna appear normal. Face and neck survey unremarkable. Profile, nasion, lips and nose appeared normal. Diaphragm and chest views unremarkable. Abdomen: Both kidneys noted and unremarkable. Stomach and bladder noted and satisfactory. Spine: Survey of the spine satisfactory with no anomalies identified nor imaged. Cervical, thoracic, lower spine appear normal. Both arms and legs noted. Amniotic Fluid: Adequate. MVP 4.85 cm. Measurements: Average ultrasound age 20weeks 2days. Estimated due date by ultrasound age 0107/03/2025. Estimated weight 340g BPD = 20weeks 1day HC = 19weeks 6days AC = 20weeks 1day FL = 20weeks 4days Growth Percentile= 50 Heart Rate = 153bpm Cerebellum = 20weeks Humerus = 20weeks 1day HC/AC is 1.16 FL/BPD is 0.72 FL/AC is 0.22 IMPRESSION: 1. Viable fetus in the cephalic presentation with a posterior placenta grade 1. The placenta contains two placental lakes. The more inferior Veras is the largest. Suggest follow-up at 28 weeks. 2. The fluid is within normal limits with an MVP 4.85 cm. 3. Anatomical scan appears normal. 4. biometry is consistent with the dates. Dictated by: Johnny Corley MD 02/15/2025 16:32 Johnny Corley MD in [place] 02/15/2025 16:32
== END 2025-02-15 23:59 | disposition home or self-care (01) ==
LOC: RAD 10:28
PROVIDERS: PCP Student in an Organized Health Care Education/Training Program; Visit Provider Obstetrics & Gynecology
DX: O28.3 Abnormal ultrasonic finding on antenatal screening of mother (principal); O09.292 Supervision of pregnancy with other poor reproductive or obstetric history, second trimester; O26.892 Other specified pregnancy related conditions, second trimester; D56.3 Thalassemia minor; Z3A.20 20 weeks gestation of pregnancy
CPT/HCPCS: 76811

== ENCOUNTER 2025-02-23 09:53 | Outpatient (CLI) | payer MEDICAID, SELFPAY ==
[2025-02-23 10:40] LABS: Hematocrit 28.9 % (37.0-47.0); Hemoglobin 9.1 g/dL (12.2-16.2); Immature Granulocytes % 0.5 %; Mean Corpuscular HGB Conc 31.5 g/dL (31.8-35.4); Mean Corpuscular Hemoglobin 24.2 pg (27.0-31.2); Mean Corpuscular Volume 76.9 fl (81-99); Nucleated Red Blood Cells % 0 %; Platelet Count 260 K/mm3 (142-424); Red Blood Count 3.76 M/mm3 (4.20-5.40); Red Cell Distribution Width-SD 41.1 fL; White Blood Count 6.3 K/mm3 (4.8-10.8)
[2025-02-23 11:00] LABS: Albumin Level 3.6 g/dl (3.5-5.0)
[2025-02-23 11:01] LABS: Chloride 107 mmol/L (98-107); Potassium 4.2 mmoL/L (3.5-5.1); Sodium 135 mmol/L (136-145)
[2025-02-23 11:03] LABS: Alanine Aminotransferase 10 U/L (12-78); Anion Gap 7.2 mEq/L (5-15); Aspartate Amino Transferase 19 U/L (14-36); Bilirubin,Unconjugated 0.0 mg/dL (0.0-1.1); Blood Urea Nitrogen 3 mg/dl (7-17); Carbon Dioxide 25 mmol/L (22.0-30.0); Creatinine,Serum 0.40 mg/dl (0.52-1.04); Estimated Glomerular Filt Rate 190 ml/min (>60); GFR (African American) 230 ML/MIN (>60)
[2025-02-23 11:04] LABS: Alkaline Phosphatase 42 U/L (38-126); Bilirubin,Direct 0.2 mg/dl (0.0-0.4); Bilirubin,Indirect 0.0 mg/dL (0.0-0.9); Bilirubin,Total 0.2 mg/dl (0.2-1.3); Calcium 9.1 mg/dl (8.4-10.2); Cholesterol 151 mg/dl (140-200); Glucose 63 mg/dl (74-100); HDL Cholesterol 77 mg/dl (40-60); Iron 49 ug/dL (37-170); Magnesium 1.6 mg/dl (1.6-2.3); Total Protein,Serum 6.2 g/dl (6.3-8.2); Triglycerides 198 mg/dl (30-150)
[2025-02-23 11:14] LABS: Total Iron Binding Capacity 473 ug/dL (265-497)
[2025-02-23 11:23] LABS: Free T4 (Free Thyroxine) 0.81 ng/dl (0.78-2.19)
[2025-02-23 11:40] LABS: Thyroid Stimulating Hormone 0.78 uIU/mL (0.465-4.68)
== END 2025-02-23 23:59 | disposition home or self-care (01) ==
PROVIDERS: PCP Family Medicine; Visit Provider Physician Assistant
DX: E61.1 Iron deficiency (principal); R42 Dizziness and giddiness; D64.89 Other specified anemias; R00.2 Palpitations
CPT/HCPCS: 36415; 80048; 80061; 80076; 83540; 83550; 83735; 84439; 84443; 85025; 93270

== ENCOUNTER 2025-03-07 13:46 | Outpatient (CLI) | payer MEDICAID, SELFPAY ==
--- NOTE | 2025-03-07 13:45 | CA_ITS ---
APPROVED REPORT EXAM: Comprehensive 2D, Doppler, and color-flow Echocardiogram Change Management Specialist: LARA Cardoza, RVS Ht: 5 ft 1 in Wt: 154lbs BSA: 1.69 BP: 129/78 mmHg Indications: SOA, Tachypalpitations, .21 weeks . 2D Dimensions Left Atrium 2.45 cm F: 2.7 - 3.8 LA Volume 22.40 mL LA Volume Index [id number] mL/m2 (M/F) 16-34 M-Mode Dimensions RVDd 1.48 cm (0.9-2.6) LA Diam 3.12 cm (1.9-4.0) LVDd 4.96 cm (3.5-5.7) LVDs 2.79 cm (3.5-5.7) IVSd 0.59 cm (0.6-1.1) PWd 0.72 cm (0.6-1.1) EF (Teich) 74.80% EPSs 0.51 cm FS 43.80% EDV (Teich) 116.10 mL TAPSE 1.91 (<1.7) ESV (Teich) 29.30 mL LV Diastology E Decel Time 213 (160-240 msec) E/A Ratio 1.18 MED A' 5.40 cm/s LAT A' 4.60 cm/s Aortic Valve DEANDRE Index 1.12 cm2/m2 AoV Peak Junior. 108.0 (50-130 cm/s) AO Peak GR. 4.70 mmHg AO Mean GR. 2.30 (<5 mmHg) AO VTI 21.7 (18-25 cm) DEANDRE (VTI) 1.94 (2.5-4.5 cm2) Mitral Valve MV A Velocity 62.0 (40-130 cm/s) E/A Ratio 1.18 Pulmonary Valve NY End VMAX 129.0 cm/s Tricuspid Valve TR P. Velocity 147.00 cm/s RAP Estimate 7.00 mmHg RVSP 15.60 mmHg Left Ventricle The left ventricle is normal size. Left ventricular systolic function is normal. The left ventricular ejection fraction is within the normal range. There is normal left ventricular wall thickness. There is normal LV segmental wall motion. The left ventricular diastolic function is normal. LVEF is 55%. Right Ventricle The right ventricle is borderline dilated. The right ventricular systolic function is normal. Atria The left atrium size is normal. The right atrium size is normal. There is no color Doppler evidence of interatrial shunt. Aortic Valve The aortic valve opens well. There is no hemodynamically significant aortic valvular stenosis. No aortic regurgitation is present. Mitral Valve The mitral valve is normal in structure. No evidence of mitral valve stenosis. Trace mitral regurgitation is present. Tricuspid Valve The tricuspid valve leaflets are thin and pliable. Mild tricuspid regurgitation. RVSP is 20-25 mmHg. Pulmonic Valve The pulmonary valve is grossly normal in structure. Trace pulmonic valve regurgitation is present. Great Vessels The aortic root is normal in size. IVC is normal in size and collapses >50% with inspiration. Pericardium There is no pericardial effusion. Other Information Study Quality: Fair Conclusion Normal biventricular systolic function. Mild TR. Electronically signed by : Breanne Dwyer MD 03/07/2025 20:23:03
== END 2025-03-07 23:59 | disposition home or self-care (01) ==
LOC: RT 13:47
PROVIDERS: PCP Family Medicine; Visit Provider Physician Assistant
DX: I07.1 Rheumatic tricuspid insufficiency (principal); R55 Syncope and collapse; R42 Dizziness and giddiness; R00.0 Tachycardia, unspecified; Z33.1 Pregnant state, incidental; Z3A.21 21 weeks gestation of pregnancy
CPT/HCPCS: 93306

== ENCOUNTER 2025-04-11 13:55 | Outpatient (CLI) | payer MEDICAID, SELFPAY ==
--- NOTE | 2025-04-11 14:00 | US_ITS ---
PROCEDURE: US OB FOLLOW UP CLINICAL INDICATION: 8wk f/u on growth COMPARISON: US US OB /MATERNAL DETAIL from 02/15/2025 FINDINGS: Transabdominal sonographic images of the pelvis were obtained. The following parameters are obtained: From her established due date she is 28weeks 0 days Viable fetus in the cephalic presentation with a posterior placenta grade 1. There are several small placental lakes. heart rate: 174bpm bpm. Average ultrasound age 28 weeks 2 days Estimated weight 1209 grams, 2 lb 11 oz BPD: 28weeks 0 days, 34 percentile HC: 27weeks 6days, 16 percentile AC: 28weeks 3days, 54 percentile FL: 28weeks 4days, 50 percentile HC/AC: 1.06 FL/BPD: 0.78 FL/AC: 0.22 Growth percentile: 50 Amniotic fluid: Appears normal No obvious anomalies evident. profile seen, stomach, bladder, kidneys, three-vessel cord, four chamber heart appear normal. IMPRESSION: 1. Viable fetus in the cephalic presentation with posterior placenta grade 1. 2. There continue to be small placental lakes. Subjectively they much smaller than on her previous exam. 3. The fluid is within normal limits. 4. There has been good interval growth with the fetus currently 50th percentile. 5. Limited anatomical scan appears normal. Dictated by: Johnny Corley MD 04/12/2025 09:34 Johnny Corley MD in [place] 04/12/2025 09:34
== END 2025-04-11 23:59 | disposition home or self-care (01) ==
LOC: RAD 13:55
PROVIDERS: PCP Family Medicine; Visit Provider Obstetrics & Gynecology
DX: Z36.2 Encounter for other antenatal screening follow-up (principal); Z87.59 Personal history of other complications of pregnancy, childbirth and the puerperium; Z3A.28 28 weeks gestation of pregnancy
CPT/HCPCS: 76816

== ENCOUNTER 2025-04-14 11:10 | Outpatient (CLI) | payer MEDICAID, SELFPAY ==
[2025-04-14 12:51] LABS: Hematocrit 26.9 % (37.0-47.0); Hemoglobin 8.0 g/dL (12.2-16.2); Immature Granulocytes % 0.7 %; Mean Corpuscular HGB Conc 29.7 g/dL (31.8-35.4); Mean Corpuscular Hemoglobin 22.2 pg (27.0-31.2); Mean Corpuscular Volume 74.7 fl (81-99); Nucleated Red Blood Cells % 0 %; Platelet Count 242 K/mm3 (142-424); Red Blood Count 3.60 M/mm3 (4.20-5.40); Red Cell Distribution Width-SD 40.5 fL; White Blood Count 7.0 K/mm3 (4.8-10.8)
[2025-04-14 13:00] LABS: Glucose 1 Hour 111 mg/dL (74-100)
[2025-04-14 18:34] LABS: Ferritin 4.56 ng/ml (6.24-137)
[2025-04-15 06:51] LABS: RPR W/RFX Titers Nonreactive (Nonreactive)
== END 2025-04-14 23:59 | disposition home or self-care (01) ==
PROVIDERS: PCP Family Medicine; Visit Provider Obstetrics & Gynecology
DX: Z34.92 Encounter for supervision of normal pregnancy, unspecified, second trimester (principal); D64.9 Anemia, unspecified; Z3A.00 Weeks of gestation of pregnancy not specified
CPT/HCPCS: 36415; 82728; 82947; 85025; 86592

== ENCOUNTER 2025-04-25 13:28 | Outpatient (CLI) | payer MEDICAID, SELFPAY ==
[2025-04-25 13:50] VITALS: BP 121/68; PULSE 71; RESP 21; TEMP 36.4; O2SAT 99
[2025-04-25] MEDS: IRON SUCROSE COMPLEX 200 MG in 0.9 % SODIUM CHLORIDE 100 ML 220 MG IV (13:50)
[2025-04-25] MEDS: SODIUM CHLORIDE 0.9% 10ML FLUSH SYRINGE 10 ML IV (13:50)
== END 2025-04-25 23:59 | disposition home or self-care (01) ==
LOC: INF 13:29
PROVIDERS: PCP Family Medicine; Visit Provider Obstetrics & Gynecology
DX: O99.019 Anemia complicating pregnancy, unspecified trimester (principal); Z3A.00 Weeks of gestation of pregnancy not specified
CPT/HCPCS: 96365; J1756

== ENCOUNTER 2025-04-25 16:45 | Emergency (ER) | payer MEDICAID, SELFPAY ==
[2025-04-25 17:02] VITALS: BP 137/74; PULSE 94; RESP 18; TEMP 36.4; O2SAT 100; BMI 30.2
--- NOTE | 2025-04-25 17:22 | ED_ITS ---
<Statement entered by Jono Mancia MD - 04/25/25 22:43> I was consulted by the LUIS E, and we discussed the complexity of the problems being addressed. I approved the treatment and management plan for this patient's care in the emergency department, thus performing a substantive portion of the medical decision making. Jono Mancia MD, REBECCA, FACEP Discharge Plan Disposition Patient Disposition: Home, Self-Care Prescriptions Prescriptions: No Action One A Day Women's DHA 28 mg iron- 800 mcg combo pack PO erythromycin 5 mg/gram (0.5 %) ointment 0.5 inch ophthalmic (eye) QID Qty: 3.5 0RF aspirin 81 mg tablet 81 mg PO DAILY Referrals Follow up/Referrals: Angeli Dietz APRN [Primary Care Provider, Family Practice] - See instructions Activity Restrictions/Add. Instructions Additional Instructions/Restrictions: Increase your protein intake. Please talk to your primary care physician or your SHAKE PACKER about this. Your SHAKE PACKER might want to repeat this. If you have any more problems with swelling or otherwise please return to the ED or call your OB. Clinical Impressions Clinical Impression: Edema due to hypoalbuminemia Anemia Qualifiers: Anemia type: other cause Other causes of anemia: other cause, not classified Q ualified Code(s): D64.89 - Other specified anemias Instructions Patient Instructions: Anemia, High-Protein Diet Foods List Print Language Print Language: Djiboutian Discharge ED Provider: Jono Mancia General Adult HPI General Chief complaint: Skin/Abscess/Foreign Body Stated complaint: feet and legs are swollen , sent by [facility] Time Seen by Provider: 04/25/25 17:14 Mode of Arrival: Ambulatory Source of Information: Patient Description of Symptoms (Recalled from ER Triage Doc. by RN): Pt presents for evaluation of swelling in bilateral ankles 1 hour after receiving iron transfusion. Pt is currently 30 weeks History of Present Illness HPI narrative: Presents to the ED today for evaluation of bilateral ankle swelling 1 hour after receiving an iron infusion today. She is 30 weeks . She says she has no other symptoms including no shortness of air, she has an active normal . She says she was placed on a baby aspirin every night because of her blood pressure being high in the past pregnancies. She is urinating okay. She has no headache or blurry vision. She says she feels fine other than her ankle swelling. Related Data Home Medications ?Medication ?Instructions ?Recorded ?Confirmed vits 75-iron 28 mg-folic pkg PO 11/30/2403/30 acid 800 mcg-omega-3 oral combo pack (One A Day Women's DHA) aspirin 81 mg tablet 81 mg PO DAILY 02/23/2503/30 Previous Rx's ?Medication ?Instructions ?Recorded erythromycin 5 mg/gram (0.5 %) eye 0.5 inch ophthalmic (eye) QID #3.5 04/20/25 ointment grams Allergies Allergy/AdvReac Type Severity Reaction Status Date / Time penicillin G (PENICILLIN G) Allergy Intermediate I-RASH Verified 04/20/25 13:08 Sulfa (Sulfonamide Allergy Intermediate I-RASH Verified 04/20/25 13:08 Antibiotics) (SULFA (SULFONAMIDE ANTIBIOTICS)) [facility] Disclaimer: The information contained in this section may have been updated after the patient was seen, as this information can be updated by other users. Medical History Anemia affecting History of hemorrhage Alpha thalassemia silent carrier History of gestational hypertension Acute blood loss anemia HGSIL (high grade squamous intraepithelial lesion) on Pap smear of cervix Paresthesia of both hands Surgical History History of thumb surgery Family History Other Asthma Cancer Coronary artery disease Diabetes Hypertension Kidney disease No significant family history Social History Smoking Status: Never smoker alcohol intake: never substance use type: denies use current occupational status: employed Travel in the last 8 weeks?: None household members: family housing: house marital status: number of children: 1 do you feel safe at home: Yes victim of physical abuse: No victim of emotional abuse: No victim of sexual abuse: No Have you lived/traveled outside US in past 30 days?: No Contact w/someone who lives/traveled outside US past 30 days?: No Exposure to someone with infectious disease in past 14 days?: No Do you have a fever (greater than 100.4 F or 38 C)?: No Have you tested positive for COVID-19?: No Exposed to someone with COVID-19 in past 14 days?: No Do you have a sore throat?: No Do you have a cough?: No Do you have any weakness?: No Do you have any diarrhea?: No Are you experiencing any unusual bleeding?: No Do you have any muscle aches/pain?: No Do you have any abdominal pain?: No Are you experiencing loss of taste or smell?: No Other Medical History Have you received the Flu Vaccine for this season: No Have you received the Pneumonia Vaccine: No ROS Obtained: Yes Systems reviewed as appropriate & no additional complaints except as documented Constitutional Constitutional: Reports as per HPI Physical Exam General General appearance: alert and in no apparent distress Head Head exam: normocephalic Eye Eye exam: Present PERRL and EOMI ENT ENT exam: Present normal oropharynx and mucous membranes moist Neck Neck exam: Present full ROM and trachea midline Respiratory Respiratory exam: Present normal lung sounds bilaterally Cardiovascular Cardiovascular exam: Present regular rate, normal rhythm, normal heart sounds, +S1 and +S2 Abdominal Exam Abdominal exam: Present soft and normal bowel sounds Extremities Exam Extremities exam: Present normal inspection, full ROM and edema Neurological Exam Neurological exam: Present alert, oriented X3 and normal gait Skin Skin exam: Present warm and dry Medical Decision Making Medical Records Screening: Per USPSTF and CDC recommendations, given the prevalence of disease in our region, it is our hospital?s policy to screen for HIV and viral Hepatitis for all patients aged 18 and over and those with ongoing risk factors. Vicente Inquiry Pt receiving controlled substance: No Vicente was queried for this patient: No Vital Signs: 04/25/25 17:02 04/25/25 18:33 Temperature 97.5 F L Temperature Source Temporal Artery Scan Pulse Rate 87 Pulse Rate [Right] 94 H Respiratory Rate 18 Blood Pressure 121/82 Blood Pressure [Right Arm] 137/74 Blood Pressure Mean [Right Arm] 95 Blood Pressure Source [Right Arm] Automatic Cuff Blood Pressure Position [Right Arm] Sitting 02 Sat by Pulse Oximetry 100 99 Oxygen Delivery Method Room Air Lab Data Lab Results 04/25/25 17:26: Urine Color Yellow, Urine Appearance Clear, Urine pH 6.0, Ur Specific [place] 1.020, Urine Protein Negative, Urine Glucose (UA) Negative, Urine Ketones Negative, Urine Blood Negative, Urine Nitrate Negative, Urine Bilirubin Negative, Urine Urobilinogen 0.2, Ur Leukocyte Esterase Negative 04/25/25 17:33: WBC 8.3, RBC 3.78 L, Hgb 8.3 L, Hct 28.0 L, MCV 74.1 L, MCH 22.0 L, MCHC 29.6 L, RDW 15.1, Plt Count 271, MPV 10.1, Neut % (Auto) 73.0, Lymph % (Auto) 17.0, [place] % (Auto) 8.6, Eos % (Auto) 0.5, Baso % (Auto) 0.1, Neut # (Auto) 6.0, Lymph # (Auto) 1.4, [place] # (Auto) 0.7, Eos # (Auto) 0.0, Baso # (Auto) 0.0, Sodium 132 L, Potassium 3.7, Chloride 104, Carbon Dioxide 25, Anion Gap 6.7, BUN 6 L, Creatinine 0.40 L, Estimated Creat Clear 238, Estimated GFR 189, Est GFR ( Amer) 228, Glucose 102 H, Calcium 8.2 L, Total Bilirubin 0.1 L, AST 26, ALT 17, Alkaline Phosphatase 66, Total Protein 6.4, Albumin 2.7 L , Globulin 3.7 H, Albumin/Globulin Ratio 0.7 L 04/25/25 17:33 04/25/25 17:33 Orders (Tests/Meds): ORDERS Category Date Time Status POCUS Point of Care (ER Only) Stat Exams 04/25/25 17:19 Completed Complete Blood Count Auto Diff Stat Lab 04/25/25 17:33 Completed Comprehensive Metabolic Panel Stat Lab 04/25/25 17:33 Completed Urinalysis and Microscopic Stat Lab 04/25/25 17:26 Results Medical Decision Narrative: patient is a 30-year-old female presenting to the emergency department for evaluation of ankle swelling after having an iron infusion at 1330 today. Patient is hemodynamically stable and nontoxic-appearing upon arrival, afebrile. Differential diagnosis includes protein urea, normal swelling, among. Workup will be conducted with hematologic labs, specific imaging. Patient's labs were drawn here in the ED today and a urine was obtained. Patient does have Anemia, her hemoglobin is 8.3 and her hematocrit is 28, her sodium is 132, BUN was 6 creatinine was 0.40 glucose was 102, calcium 8.2, total bili was 0.1 albumin was 2.7 which we discussed with patient and told her to increase her protein intake then talk to her OB about this. Patient's urine was negative. Patient is safe for discharge home. Critical Care Critical Care Time Critical Care Time: No
[2025-04-25 17:31] LABS: Microscopic, Urine URINE MICROSCOPIC (MICROSCOPIC)
[2025-04-25 17:49] LABS: Hematocrit 28.0 % (37.0-47.0); Hemoglobin 8.3 g/dL (12.2-16.2); Immature Granulocytes % 0.8 %; Mean Corpuscular HGB Conc 29.6 g/dL (31.8-35.4); Mean Corpuscular Hemoglobin 22.0 pg (27.0-31.2); Mean Corpuscular Volume 74.1 fl (81-99); Nucleated Red Blood Cells % 0 %; Platelet Count 271 K/mm3 (142-424); Red Blood Count 3.78 M/mm3 (4.20-5.40); Red Cell Distribution Width-SD 40.3 fL; White Blood Count 8.3 K/mm3 (4.8-10.8)
[2025-04-25 18:03] LABS: Albumin Level 2.7 g/dl (3.5-5.0); Chloride 104 mmol/L (98-107); Sodium 132 mmol/L (136-145)
[2025-04-25 18:04] LABS: Potassium 3.7 mmoL/L (3.5-5.1)
[2025-04-25 18:06] LABS: Alanine Aminotransferase 17 U/L (12-78); Anion Gap 6.7 mEq/L (5-15); Aspartate Amino Transferase 26 U/L (14-36); Blood Urea Nitrogen 6 mg/dl (7-17); Carbon Dioxide 25 mmol/L (22.0-30.0); Creatinine Clearance Estimated 238 mL/min (50-200); Creatinine,Serum 0.40 mg/dl (0.52-1.04); Estimated Glomerular Filt Rate 189 ml/min (>60); GFR (African American) 228 ML/MIN (>60)
[2025-04-25 18:07] LABS: Albumin/Globulin Ratio 0.7 (1.1-1.8); Alkaline Phosphatase 66 U/L (38-126); Calcium 8.2 mg/dl (8.4-10.2); Globulin 3.7 g/dL (1.3-3.2); Glucose 102 mg/dl (74-100); Total Protein,Serum 6.4 g/dl (6.3-8.2)
[2025-04-25 18:18] LABS: Bilirubin,Total 0.1 mg/dl (0.2-1.3)
[2025-04-25 18:24] LABS: Bilirubin,Urine Negative (Negative); Glucose,Urine (UA) Negative (Negative); Ketones,Urine Negative (Negative); Leukocyte Esterase,Urine Negative (Negative); PH,Urine 6.0 (5.0-8.5); Protein,Urine Negative (Negative); Specific Gravity, Urine 1.020 (1.005-1.030); Urobilinogen,Urine 0.2 EU/dl (0.2)
[2025-04-25 18:28] LABS: Color,Urine Yellow (Yellow)
[2025-04-25 18:33] VITALS: BP 121/82; PULSE 87; O2SAT 99
[2025-04-25 19:04] LABS: Bacteria,Urine 3+ /lpf
[2025-04-25 19:06] VITALS: BP 121/82; PULSE 87; RESP 18; TEMP 36.7; O2SAT 99
== END 2025-04-25 19:06 | disposition home or self-care (01) ==
PROVIDERS: Nurse Practitioner; Emergency Provider Student in an Organized Health Care Education/Training Program; PCP Family Medicine
DX: O99.013 Anemia complicating pregnancy, third trimester (principal); E88.09 Other disorders of plasma-protein metabolism, not elsewhere classified; D64.89 Other specified anemias; E87.1 Hypo-osmolality and hyponatremia; Z3A.30 30 weeks gestation of pregnancy
CPT/HCPCS: 80053; 81001; 85025; 87086; 99284

== ENCOUNTER 2025-05-02 13:18 | Outpatient (CLI) | payer MEDICAID, SELFPAY ==
[2025-05-02] MEDS: SODIUM CHLORIDE 0.9% 10ML FLUSH SYRINGE 10 ML IV (13:35)
[2025-05-02 13:36] VITALS: BP 121/62; PULSE 93; RESP 14; TEMP 36.7; O2SAT 100
[2025-05-02] MEDS: IRON SUCROSE COMPLEX 200 MG in 0.9 % SODIUM CHLORIDE 100 ML 110 MG IV (13:36)
[2025-05-02 14:42] VITALS: BP 124/67; PULSE 93; RESP 14; O2SAT 100
== END 2025-05-02 23:59 | disposition home or self-care (01) ==
LOC: INF 13:19
PROVIDERS: PCP Family Medicine; Visit Provider Obstetrics & Gynecology
DX: O99.019 Anemia complicating pregnancy, unspecified trimester (principal); Z3A.00 Weeks of gestation of pregnancy not specified
CPT/HCPCS: 96365; J1756

== ENCOUNTER 2025-05-09 10:14 | Outpatient (CLI) | payer MEDICAID, SELFPAY ==
[2025-05-09 10:39] LABS: Microscopic, Urine URINE MICROSCOPIC (MICROSCOPIC)
[2025-05-09 10:40] LABS: Bilirubin,Urine Negative (Negative); Color,Urine YELLOW (Yellow); Glucose,Urine (UA) TRACE (Negative); Ketones,Urine Negative (Negative); Leukocyte Esterase,Urine Negative (Negative); PH,Urine 7.0 (5.0-8.5); Protein,Urine Negative (Negative); Specific Gravity, Urine 1.020 (1.005-1.030); Urobilinogen,Urine 0.2 EU/dl (0.2)
[2025-05-09 10:42] VITALS: BP 132/82; PULSE 123; RESP 17; TEMP 36.7; O2SAT 97; BMI 31.4
[2025-05-09 10:49] LABS: Bacteria,Urine 2+ /lpf; WBC,Urine Occasional #/hpf (0-3)
[2025-05-09] MEDS: DEXTROSE 5%-LACTATED RINGERS 1,000 ML 999 ML IV (11:13)
[2025-05-09 12:00] VITALS: PULSE 93
[2025-05-09] MEDS: SODIUM CHLORIDE 0.9% 10ML FLUSH SYRINGE 10 ML IV (12:38)
[2025-05-09 12:39] VITALS: BP 126/66; PULSE 90; RESP 14; TEMP 36.8; O2SAT 99
[2025-05-09] MEDS: IRON SUCROSE COMPLEX 200 MG in 0.9 % SODIUM CHLORIDE 100 ML 220 MG IV (12:39)
[2025-05-09 13:20] VITALS: BP 126/69; PULSE 88; RESP 14; O2SAT 99
== END 2025-05-09 23:59 | disposition home or self-care (01) ==
LOC: OBOUT 10:17 → OB 10:24 → INF 12:47
PROVIDERS: PCP Family Medicine; Visit Provider Obstetrics & Gynecology
DX: O99.013 Anemia complicating pregnancy, third trimester (principal); Z3A.32 32 weeks gestation of pregnancy
CPT/HCPCS: 81001; 87086; 96365; J1756; J7121

== ENCOUNTER 2025-05-16 13:41 | Outpatient (CLI) | payer MEDICAID, SELFPAY ==
[2025-05-16 13:50] VITALS: BP 133/76; PULSE 92; RESP 20; TEMP 36.7; O2SAT 98
[2025-05-16] MEDS: IRON SUCROSE COMPLEX 200 MG in 0.9 % SODIUM CHLORIDE 100 ML 220 MG IV (13:50)
[2025-05-16 14:20] VITALS: BP 114/70; PULSE 98; RESP 20; O2SAT 98
[2025-05-16] MEDS: SODIUM CHLORIDE 0.9% 10ML FLUSH SYRINGE 10 ML IV (14:52)
== END 2025-05-16 23:59 | disposition home or self-care (01) ==
LOC: INF 13:44
PROVIDERS: PCP Family Medicine; Visit Provider Obstetrics & Gynecology
DX: O99.019 Anemia complicating pregnancy, unspecified trimester (principal); Z3A.00 Weeks of gestation of pregnancy not specified
CPT/HCPCS: 96365; J1756

== ENCOUNTER 2025-05-17 12:44 | Outpatient (CLI) | payer MEDICAID, SELFPAY ==
--- NOTE | 2025-05-17 13:00 | US_ITS ---
PROCEDURE: US OB BIOPHYSICAL PROFILE CLINICAL INDICATION: BPP COMPARISON: US US OB /MATERNAL DETAIL from 02/15/2025 US US OB FOLLOW UP from 04/11/2025 FINDINGS: Transabdominal sonographic images of the uterus were obtained. From her established due date she is 33weeks 1day. The following parameters are obtained: Viable Fetus in the cephalic presentation with a lateral posterior placenta grade 2. There are several small placental lakes. The cervix measures 3.39 cm in length. Average ultrasound age is 33weeks 2days Estimated weight 2,132g, 4 lb 11 oz Measurements: heart Rate = 153bpm BPD = 32weeks 6days, 35 percentile HC = 33weeks 3days, 20 percentile AC = 33weeks 2days, 53 percentile FL = 33weeks 2days, 38 percentile HC/AC is 1.03 FL/BPD is 0.79 FL/AC is 0.22 41 percentile Amniotic fluid index: 8.95cm, MVP 3.54 cm Qualitative AFV:2 Breathing movements: 2 Gross Body Movements: 2 Tone: 2 Biophysical profile score: 8 No obvious anomalies evident.Kidneys, profile, stomach, bladder, four-chamber heart, three-vessel cord appear normal. IMPRESSION: 1. Viable fetus in the cephalic presentation with a lateral posterior placenta grade 2. 2. There continue to be several small placental lakes. 3. The fluid is within normal limits with an MVP 8.95 cm, MVP 3.54 cm. 4. Biophysical profile is 8/8 with good breathing movement and movement seen. 5. There has been good interval growth with the fetus currently 41st percentile. 6. Limited anatomical scan appears normal. Dictated by: Johnny Corley MD 05/17/2025 16:38 Johnny Corley MD in OV 05/17/2025 16:38
== END 2025-05-17 23:59 | disposition home or self-care (01) ==
LOC: RAD 12:45
PROVIDERS: PCP Family Medicine; Visit Provider Obstetrics & Gynecology
DX: O28.3 Abnormal ultrasonic finding on antenatal screening of mother (principal); O99.013 Anemia complicating pregnancy, third trimester; O09.293 Supervision of pregnancy with other poor reproductive or obstetric history, third trimester; O99.113 Other diseases of the blood and blood-forming organs and certain disorders involving the immune mechanism complicating pregnancy, third trimester; D64.9 Anemia, unspecified; D56.3 Thalassemia minor; Z3A.33 33 weeks gestation of pregnancy
CPT/HCPCS: 76816; 76819

== ENCOUNTER 2025-05-29 13:20 | Outpatient (CLI) | payer MEDICAID, SELFPAY ==
[2025-05-29 13:37] VITALS: BP 122/67; PULSE 99; RESP 18; O2SAT 100
[2025-05-29] MEDS: IRON SUCROSE COMPLEX 200 MG in 0.9 % SODIUM CHLORIDE 100 ML 220 MG IV (13:37)
[2025-05-29 14:15] VITALS: BP 130/64; PULSE 97; RESP 18; O2SAT 100
== END 2025-05-29 23:59 | disposition home or self-care (01) ==
PROVIDERS: PCP Family Medicine; Visit Provider Obstetrics & Gynecology
DX: O99.019 Anemia complicating pregnancy, unspecified trimester (principal); Z3A.00 Weeks of gestation of pregnancy not specified
CPT/HCPCS: 96365; J1756

== ENCOUNTER 2025-06-08 11:39 | Outpatient (CLI) | payer MEDICAID, SELFPAY | END 2025-06-08 23:59 | disposition home or self-care (01) | LOC: LAB.DROPOF 06-09 14:04 | PROVIDERS: PCP Family Medicine; Visit Provider Obstetrics & Gynecology | DX: O99.013 Anemia complicating pregnancy, third trimester (principal); Z3A.00 Weeks of gestation of pregnancy not specified | CPT/HCPCS: 86403 ==

== ENCOUNTER 2025-06-17 10:15 | Outpatient (CLI) | payer MEDICAID, SELFPAY ==
[2025-06-17 11:04] LABS: Microscopic, Urine URINE MICROSCOPIC (MICROSCOPIC)
[2025-06-17 11:05] LABS: Bilirubin,Urine Negative (Negative); Color,Urine YELLOW (Yellow); Glucose,Urine (UA) 2+ (Negative); Ketones,Urine Negative (Negative); Leukocyte Esterase,Urine 1+ (Negative); PH,Urine 7.0 (5.0-8.5); Protein,Urine Negative (Negative); Specific Gravity, Urine 1.020 (1.005-1.030); Urobilinogen,Urine 0.2 EU/dl (0.2)
[2025-06-17 11:09] VITALS: BP 145/95; PULSE 113; RESP 18; TEMP 36.6; O2SAT 98; BMI 32.6
[2025-06-17 11:14] LABS: Fetal Membrane Rupture (Rapid) Negative (Negative)
[2025-06-17 11:32] LABS: Bacteria,Urine 3+ /lpf
[2025-06-17 12:58] LABS: Hematocrit 34.4 % (37.0-47.0); Hemoglobin 10.9 g/dL (12.2-16.2); Immature Granulocytes % 0.8 %; Mean Corpuscular HGB Conc 31.7 g/dL (31.8-35.4); Mean Corpuscular Hemoglobin 25.3 pg (27.0-31.2); Mean Corpuscular Volume 80.0 fl (81-99); Nucleated Red Blood Cells % 0 %; Platelet Count 165 K/mm3 (142-424); Red Blood Count 4.30 M/mm3 (4.20-5.40); Red Cell Distribution Width-SD 65.3 fL; White Blood Count 6.3 K/mm3 (4.8-10.8)
--- NOTE | 2025-06-17 13:01 | US_ITS ---
PROCEDURE INFORMATION: Exam: US Biophysical Profile Without Non-Stress Test Exam date and time: 06/17/2025 1:23 PM Age: 30 years old Clinical indication: status abnormalities: ; Oligohydramnios; Single gestation; Third trimester (>=28 weeks 0 days); ; Additional info: Rupture of membranes TECHNIQUE: Imaging protocol: US biophysical profile without non-stress testing. Total images: 206 COMPARISON: US OB BIOPHYSICAL PROFILE 05/17/2025 12:45 PM FINDINGS: presentation and position: Cephalic presentation. Amniotic fluid index: JACLYN is 6.7 cm. BIOPHYSICAL PROFILE: breathing (BPP): 2 out of 2. gross body movement (BPP): 2 out of 2. tone (BPP): 2 out of 2. Amniotic fluid (BPP): 2 out of 2. Biophysical profile score (BPP): Biophysical profile score 8/8. MATERNAL ANATOMY: Cervix: Cervical length 2.5 cm. Other findings: Anterolateral placenta grade 2. IMPRESSION: Biophysical profile score 8/8.
[2025-06-17 13:14] LABS: Activated Partial Thrombo Time 26.0 seconds (22.8-30.6); INR 0.92 (0.9-1.1); Prothrombin Time 10.3 seconds (10.1-12.5)
[2025-06-17 13:18] LABS: Albumin Level 3.8 g/dl (3.5-5.0); Chloride 107 mmol/L (98-107); Sodium 132 mmol/L (136-145)
[2025-06-17 13:19] LABS: Potassium 3.8 mmoL/L (3.5-5.1)
[2025-06-17 13:21] LABS: Alanine Aminotransferase 14 U/L (12-78); Albumin/Globulin Ratio 1.5 (1.1-1.8); Alkaline Phosphatase 79 U/L (38-126); Anion Gap 8.8 mEq/L (5-15); Aspartate Amino Transferase 19 U/L (14-36); Bilirubin,Total 0.2 mg/dl (0.2-1.3); Blood Urea Nitrogen 5 mg/dl (7-17); Carbon Dioxide 20 mmol/L (22.0-30.0); Creatinine Clearance Estimated 257 mL/min (50-200); Creatinine,Serum 0.40 mg/dl (0.52-1.04); Estimated Glomerular Filt Rate 189 ml/min (>60); GFR (African American) 228 ML/MIN (>60); Globulin 2.6 g/dL (1.3-3.2); Total Protein,Serum 6.4 g/dl (6.3-8.2)
[2025-06-17 13:22] LABS: Calcium 8.7 mg/dl (8.4-10.2); Glucose 73 mg/dl (74-100)
[2025-06-17 13:34] LABS: Uric Acid 3.1 mg/dl (2.5-6.2)
== END 2025-06-17 14:01 | disposition home or self-care (01) ==
LOC: OBOUT 10:18 → OB 10:20
PROVIDERS: PCP Family Medicine; Visit Provider Obstetrics & Gynecology
DX: O42.92 Full-term premature rupture of membranes, unspecified as to length of time between rupture and onset of labor (principal); O41.03X0 Oligohydramnios, third trimester, not applicable or unspecified; Z3A.37 37 weeks gestation of pregnancy
CPT/HCPCS: 36415; 76819; 80053; 81001; 82570; 84112; 84156; 84550; 85025; 85610; 85730; 87086; 99213

== ENCOUNTER 2025-06-17 18:01 | Inpatient (IN) | payer MEDICAID, SELFPAY ==
[2025-06-17 18:24] VITALS: BP 149/79; PULSE 114; RESP 18; TEMP 36.9; O2SAT 99; BMI 32.6
--- NOTE | 2025-06-17 19:12 | EXP.OB.APHP ---
OB - H&P: HPI Antepartum History of Present Illness Chief complaint: Gestational hypertension, borderline oligohydramnios History of present illness: Mrs Benedicto Pascual is a 30 at 37w4d who presents to [facility] for induction of labor secondary to newly diagnosed GHTN and borderline oligohydramnios. She presented to [facility] earier today with complaint of gush of fluid. Amnisure was negative. BPP ordered and was 8/8 with JACLYN 6.7. While in triage blood pressure was noted to be mild range. She has history of gestational hypertension with prior . PIH labs were ordered and within normal limits. Decision was made to proceed with induction of labor for newly diagnosed GHTN with borderline low JACLYN. She has had good care. complicated by anemia, history of GHTN and history of hemorrhage with prior delivery. Hgb with 28 week labs was 8.0. She received four Venofer infusions in the third trimester. She admits to increased pelvic pressure and hip pain. No vaginal bleeding. Baby is very active. GBS negative. History of Present Criteria for establishing EDC:: LMP confirmed by 1st trimester US care: good care Ultrasounds: normal mid trimester US Obstetrical complications: gestational hypertension Medical complications: none Labs Blood type: A (+) positive Rubella: immune RPR/VDRL: nonreactive GBS status: negative [facility] Disclaimer: The information contained in this section may have been updated after the patient was seen, as this information can be updated by other users. Medical History (Updated 06/17/25 @ 19:30 by Antoinette Vela DO) Amniotic fluid index borderline low Gestational hypertension affecting third Abnormal ultrasound Anemia affecting , antepartum Encounter for related examination in third trimester Anemia affecting History of hemorrhage Alpha thalassemia silent carrier History of gestational hypertension Acute blood loss anemia HGSIL (high grade squamous intraepithelial lesion) on Pap smear of cervix Paresthesia of both hands Surgical History History of thumb surgery Family History Other Asthma Cancer Coronary artery disease Diabetes Hypertension Kidney disease No significant family history Social History (Updated 06/17/25 @ 18:26 by Walker Gallego RN) Smoking Status: Never smoker alcohol intake: never substance use type: denies use current occupational status: employed Travel in the last 8 weeks?: None household members: family housing: house marital status: number of children: 1 do you feel safe at home: Yes victim of physical abuse: No victim of emotional abuse: No victim of sexual abuse: No Have you lived/traveled outside US in past 30 days?: No Contact w/someone who lives/traveled outside US past 30 days?: No Exposure to someone with infectious disease in past 14 days?: No Do you have a fever (greater than 100.4 F or 38 C)?: No Have you tested positive for COVID-19?: No Exposed to someone with COVID-19 in past 14 days?: No Do you have a sore throat?: No Do you have a cough?: No Do you have any weakness?: No Are you experiencing any nausea/vomitting?: No Do you have any diarrhea?: No Are you experiencing any unusual bleeding?: No Do you have any muscle aches/pain?: No Do you have any abdominal pain?: No Are you experiencing loss of taste or smell?: No Other Medical History Have you received the Flu Vaccine for this season: No Have you received the Pneumonia Vaccine: No Review of Systems Review of Systems Review of systems:: pertinent systems reviewed and negative unless documented below *Genitourinary Genitourinary: Reports as per [facility] Meds Home Medications and Allergies Home Medications ?Medication ?Instructions ?Recorded ?Confirmed ?Type vits 75-iron 28 mg-folic 1 pkg PO DAILY Supplement 11/30/24 06/17/25 History acid 800 mcg-omega-3 oral combo pack (One A Day Women's DHA) aspirin 81 mg tablet 81 mg PO DAILY Blood Thinner 02/23/25 06/17/25 History New Prescriptions to Start Prescriptions: Allergies Allergy/AdvReac Type Severity Reaction Status Date / Time penicillin G (PENICILLIN G) Allergy Intermediate I-RASH Verified 06/15/25 10:03 Sulfa (Sulfonamide Allergy Intermediate I-RASH Verified 06/15/25 10:03 Antibiotics) (SULFA (SULFONAMIDE ANTIBIOTICS)) OB - H&P: Exam Physical Exam Vital signs: Temp Pulse Resp BP Pulse Ox O2 Del Method 98.4 F 114 H 18 149/79 H 99 Room Air 06/17/25 18:24 06/17/25 18:24 12/20/25 18:24 06/17/25 18:24 06/17/25 18:24 06/17/25 18:24 Constitutional no acute distress and cooperative Routine HEENT Exam Head: Present normocephalic and atraumatic Eye: Absent conjunctivae pink ENT: Present mucous membranes moist Routine Neck Exam Present full ROM Routine Respiratory Exam Present CTA bilaterally and normal respiratory effort Routine Cardiovascular Exam Present RRR Routine Abdominal Exam Present soft (Gravid); Absent tenderness Routine Rectal Exam Patient deferred: visual exam Routine Exam External: Present normal urethra appearance; Absent erythema, swelling, tenderness, lesions or discharge Routine Extremities Exam Present full ROM; Absent edema or calf tenderness Routine Neurological Exam Present alert, moving all extremities and normal speech Routine Psychiatric Exam Present normal affect and cooperative Detailed Labor and Delivery Exam Dilation (cm): 2 Effacement (%): 70 Cervix position: mid station: -2 Consistency: soft Membranes: intact Baseline heart rate: 150 monitor accelerations: Present monitor decelerations: None terminal make up operator variability: Moderate (11-25) OB - A/P Antepartum (1) Gestational hypertension affecting third : Status: Acute (2) Amniotic fluid index borderline low: Problem details: JACLYN 6.7 (06/17/25) Status: Acute (3) Abnormal ultrasound: Problem details: placental lakes Status: Acute (4) Anemia affecting , antepartum: Status: Acute (5) History of gestational hypertension: Status: Acute (6) History of hemorrhage: Status: Acute Additional Plan Additional Information:: Admit to [facility] for induction of labor secondary to newly diagnosed GHTN with borderline low JACLYN, 6.7. Plan for induction of labor with Cytotec followed by Pitocin and amniotomy. Induction of labor risks, benefits, alternatives discussed with patient. She voiced understanding of risks, benefits and possible complications. Induction consent form signed. Plan for induction with Cytotec 50 mcg PO x 1 dose GBS negative Close monitoring
[2025-06-17 20:03] VITALS: BP 135/85; PULSE 103; RESP 16; TEMP 36.8; O2SAT 98
[2025-06-18] MEDS: ONDANSETRON 4MG/2ML VIAL 4 MG IV ×2 (00:57→18:42)
[2025-06-18] MEDS: DEXTROSE 5%-LACTATED RINGERS 1,000 ML 75 ML IV ×2 (03:11→16:24)
[2025-06-18] MEDS: BUTORPHANOL TARTRATE 1 MG/ML VIAL IV (03:32)
[2025-06-18] MEDS: OXYTOCIN/RINGERS LACTATE 30 UNITS/500 ML BAG IV (03:35)
[2025-06-18 03:37] VITALS: BP 108/57; PULSE 82; RESP 18; TEMP 36.9; O2SAT 97
[2025-06-18 07:26] VITALS: BP 131/89; PULSE 77; RESP 18; TEMP 36.8; O2SAT 98
[2025-06-18 10:44] LABS: RPR W/RFX Titers Nonreactive (Nonreactive)
[2025-06-18] MEDS: LACTATED RINGERS 1000ML 1,000 ML 999 ML IV (12:00)
--- NOTE | 2025-06-18 12:56 | EXP.ANES.CKL ---
[facility] Disclaimer: The information contained in this section may have been updated after the patient was seen, as this information can be updated by other users. Medical History Amniotic fluid index borderline low Gestational hypertension affecting third Abnormal ultrasound Anemia affecting , antepartum Encounter for related examination in third trimester Anemia affecting History of hemorrhage Alpha thalassemia silent carrier History of gestational hypertension Acute blood loss anemia HGSIL (high grade squamous intraepithelial lesion) on Pap smear of cervix Paresthesia of both hands Surgical History History of thumb surgery Family History Other Asthma Cancer Coronary artery disease Diabetes Hypertension Kidney disease No significant family history Social History Smoking Status: Never smoker alcohol intake: never substance use type: denies use current occupational status: employed Travel in the last 8 weeks?: None household members: family housing: house marital status: number of children: 1 do you feel safe at home: Yes victim of physical abuse: No victim of emotional abuse: No victim of sexual abuse: No Have you lived/traveled outside US in past 30 days?: No Contact w/someone who lives/traveled outside US past 30 days?: No Exposure to someone with infectious disease in past 14 days?: No Do you have a fever (greater than 100.4 F or 38 C)?: No Have you tested positive for COVID-19?: No Exposed to someone with COVID-19 in past 14 days?: No Do you have a sore throat?: No Do you have a cough?: No Do you have any weakness?: No Are you experiencing any nausea/vomitting?: No Do you have any diarrhea?: No Are you experiencing any unusual bleeding?: No Do you have any muscle aches/pain?: No Do you have any abdominal pain?: No Are you experiencing loss of taste or smell?: No [facility] Anesthesia Checklist Patient Identification Patient Identification: Arm Band and Verbal (Name & ) Structural Data Admitted From: Inpatient Planned Operative Procedure/s: labor epidural Consent for Planned Operative Procedure(s) Verified: Yes Verified Documents: Surgical Consent and History and Physical NPO Status Verified Time NPO: 00:00 Additional verifications Anesthesia Reactions: No Airway Assessment Mallampati Score:: Class II Dentition: Good Dentition Neurological Assessment Level of Consciousness: Awake, Alert and Appropriate Hx Seizures: No Numbness or tingling in extremities: No Anesthesia Plan Anesthesia Risk discussed: Yes Anesthesia Plan: Verified ASA Class: II Anesthesia Type: Epidural
--- NOTE | 2025-06-18 18:08 | EXP.DN ---
Delivery Note Delivery Date:: 06/18/25 Delivery Time:: 17:55 Anesthesia Type: Epidural Was labor medically induced?: Yes Induction method: per misoprostol protocol Gestational age (weeks): 37 Infant delivered prior to 39 weeks?: Yes Justification for early elective delivery:: Gestational Hypertension and Oligohydraminos (borderline oligohydramnios) Infant Gender: Female at 1 minute: 8 at 5 minutes: 9 Delivery Procedure:: Mom complete with epidural. Pushed for approximately 5 minutes. Head delivered spontaneously over intact perineum in OA position. Nuchal cord x 1 easily reduced. Anterior shoulder delivered with gentle downward pressure. Posterior shoulder and remainder of body delivered spontaneously. Baby placed on maternal abdomen, mouth and nares bulb suctioned, warmed/dried and stimulated. Delayed cord clamping was performed for 60 seconds. Cord was clamped and cut by father of baby. Cord blood was obtained. Placenta delivered spontaneously and intact. Placenta will be sent to pathology for review. No lacerations. Mom and baby were skin to skin and doing well after delivery. Live female baby (baby's name is Reny Cavazos) APGARs 8 (1 min), 9 (5 min) EBL 200 mL Placental Delivery Description: Spontaneous
[2025-06-18 20:30] VITALS: BP 132/79; PULSE 100; RESP 20; TEMP 36.6; O2SAT 98
[2025-06-18] MEDS: BENZOCAINE-MENTHOL SPRAY 56GM CAN TP (23:17)
[2025-06-18] MEDS: ACETAMINOPHEN 500MG TAB 1000 MG PO (23:17)
[2025-06-18] MEDS: WITCH HAZEL 40 PADS/BOX 1 EACH TP (23:17)
[2025-06-19 00:14] VITALS: BP 138/90; PULSE 91; RESP 18; O2SAT 98
[2025-06-19 04:58] VITALS: BP 127/67; PULSE 83; RESP 17; TEMP 36.9; O2SAT 98
[2025-06-19] MEDS: IBUPROFEN 400 MG TABLET 800 MG PO ×2 (05:01→13:43)
[2025-06-19 05:43] LABS: Hematocrit 31.2 % (37.0-47.0); Hemoglobin 9.4 g/dL (12.2-16.2); Immature Granulocytes % 0.8 %; Mean Corpuscular HGB Conc 30.1 g/dL (31.8-35.4); Mean Corpuscular Hemoglobin 25.0 pg (27.0-31.2); Mean Corpuscular Volume 83.0 fl (81-99); Nucleated Red Blood Cells % 0 %; Platelet Count 142 K/mm3 (142-424); Red Blood Count 3.76 M/mm3 (4.20-5.40); Red Cell Distribution Width-SD 67.0 fL; White Blood Count 7.3 K/mm3 (4.8-10.8)
--- NOTE | 2025-06-19 12:19 | P.DS_ITS ---
General Admission date:: 06/17/25 Discharge date: 06/19/25 HPI HPI HPI: PPD # 1 s/p Feeling well. Pain controlled. Formula feeding. Lochia is appropriate. Voiding without difficulty and passing flatus. Tolerating regular diet. Denies fever/chills, chest pain and shortness of breath. No headaches, vision changes, lightheadedness/dizziness. No lower extremity swelling. Ambulating well ad yamilet. Hospital Course Hospital Course Hospital Course: Mrs Benedicto Pascual is a 30 at 37w4d who presents to [facility] for induction of labor secondary to newly diagnosed GHTN and borderline oligohydramnios. She presented to [facility] earier today with complaint of gush of fluid. Amnisure was negative. BPP ordered and was 8/8 with JACLYN 6.7. While in triage blood pressure was noted to be mild range. She has history of gestational hypertension with prior . PIH labs were ordered and within normal limits. Decision was made to proceed with induction of labor for newly diagnosed GHTN with borderline low JACLYN. She has had good care. complicated by anemia, history of GHTN and history of hemorrhage with prior delivery. Hgb with 28 week labs was 8.0. She received four Venofer infusions in the third trimester. She admits to increased pelvic pressure and hip pain. No vaginal bleeding. Baby is very active. GBS negative. She underwent induction of labor with Cytotec 50 mcg PO x 1 dose followed by Pitocin and amniotomy. She had a normal spontaneous vaginal delivery on 06/18/25 at 1755. She delivered a live female baby, Aiva Macy, weighing 7 lb 4 oz. APGARs 8 (1 min), 9 (5 min). EBL 200 mL. She did well . Pain controlled. Formula feeding. Light lochia. Voiding without difficulty and passing flatus. Tolerating regular diet. Denies fever/chills, chest pain and shortness of breath. No headaches, dizziness/lightheadedness or vision changes. Vital signs stable, afebrile. Heart regular rate and rhythm. Lungs clear to auscultation. Abdomen soft, nontender. No lower extremity swelling. Ambulating well ad yamilet. Normal hospital course. She was discharged to home on PPD # 1 with instructions to follow-up in the office in 2 weeks or sooner if needed. Exam Data for Last 24 hours Vital signs and Labs for Last 24 Hours: Temp Pulse Resp BP Pulse Ox O2 Del Method 98.4 F 83 17 127/67 98 Room Air 06/19/25 04:58 06/19/25 04:58 06/19/25 04:58 06/19/25 04:58 06/19/25 04:58 06/19/25 04:58 Laboratory Results - last 24 hr 06/19/25 05:34: WBC 7.3, RBC 3.76 L, Hgb 9.4 L, Hct 31.2 L, MCV 83.0, MCH 25.0 L , MCHC 30.1 L, RDW 22.8 H, Plt Count 142, MPV 10.3, Neut % (Auto) 69.8, Lymph % (Auto) 20.6, [place] % (Auto) 7.5, Eos % (Auto) 1.0, Baso % (Auto) 0.3, Neut # (Auto) 5.1, Lymph # (Auto) 1.5, [place] # (Auto) 0.6, Eos # (Auto) 0.1, Baso # (Auto) 0.0 I & O for Last 24 hours: Intake & Output 06/16/25 06/17/25 06/18/25 06/19/25 23:59 23:59 23:59 23:59 Intake Total 2705.00 / 2705.00 Output Total 700 / 700 Balance / Weight 173 lb Constitutional Constitutional: no acute distress and cooperative *Routine HEENT Exam Head: Present normocephalic and atraumatic Eye: Absent conjunctivae pink ENT: Present mucous membranes moist *Routine Neck Exam Neck: Present full ROM *Routine Respiratory Exam Respiratory: Present CTA bilaterally and normal respiratory effort *Routine Cardiovascular Exam Cardiovascular: Present RRR *Routine Abdominal Exam Abdominal: Present soft and normoactive bowel sounds; Absent tenderness Comments: Uterine fundus firm and below umbilicus *Routine Rectal Exam Patient deferred: visual exam *Routine Exam Patient deferred: external exam *Routine Extremities Exam Extremities: Present full ROM; Absent edema or calf tenderness *Routine Neurological Exam Neurological: Present alert, moving all extremities and normal speech Routine Psychiatric Exam Psychiatric: Present normal affect and cooperative Results Data Completed and Pending Labs on day of discharge: Labs from last 24 hours 06/19/25 05:34 WBC 7.3 RBC 3.76 L Hgb 9.4 L Hct 31.2 L MCV 83.0 MCH 25.0 L MCHC 30.1 L RDW 22.8 H Plt Count 142 MPV 10.3 Neut % (Auto) 69.8 Lymph % (Auto) 20.6 [place] % (Auto) 7.5 Eos % (Auto) 1.0 Baso % (Auto) 0.3 Neut # (Auto) 5.1 Lymph # (Auto) 1.5 [place] # (Auto) 0.6 Eos # (Auto) 0.1 Baso # (Auto) 0.0 DS: Diagnosis Discharge Diagnosis (1) Status post vaginal delivery: Status: Acute (2) Gestational hypertension affecting third : Status: Acute Code(s): O13.9 - Gestational [-induced] hypertension without significant proteinuria, unspecified trimester (3) Amniotic fluid index borderline low: Status: Acute Code(s): O28.8 - Other abnormal findings on screening of mother Problem details: JACLYN 6.7 (06/17/25) (4) Abnormal ultrasound: Status: Acute Code(s): O28.3 - Abnormal ultrasonic finding on screening of mother Problem details: placental lakes (5) Anemia affecting , antepartum: Status: Acute Code(s): O99.019 - Anemia complicating , unspecified trimester (6) History of gestational hypertension: Status: Acute Code(s): Z87.59 - Personal history of other complications of , childbirth and the puerperium (7) History of hemorrhage: Status: Acute Code(s): Z87.59 - Personal history of other complications of , childbirth and the puerperium (8) Acute blood loss anemia: Status: Acute Code(s): D62 - Acute posthemorrhagic anemia Meds Home Medications and Allergies Home Medications ?Medication ?Instructions ?Recorded ?Confirmed ?Type ibuprofen 800 mg tablet 800 mg PO Q8H PRN pain #20 t abs 06/19/25 Rx New Prescriptions to Start Prescriptions: Antoinette Sen Allergies Allergy/AdvReac Type Severity Reaction Status Date / Time penicillin G (PENICILLIN G) Allergy Intermediate I-RASH Verified 06/15/25 10:03 Sulfa (Sulfonamide Allergy Intermediate I-RASH Verified 06/15/25 10:03 Antibiotics) (SULFA (SULFONAMIDE ANTIBIOTICS)) Discharge Plan Disposition Patient Disposition: Home, Self-Care Condition: Good Discharge Order Discharge Orders: Discharge Order (Routine); Ordered 06/19/25 Ordered By: Antoinette Vela Follow up Plan Follow up with: Antoinette Vela DO [Staff Physician, [employer]] - 07/05/25 11:15 am Prescriptions/Medication Reconciliation: New ibuprofen 800 mg tablet 800 mg PO Q8H PRN (Reason: pain) Qty: 20 0RF Discontinued One A Day Women's DHA 28 mg iron- 800 mcg combo pack 1 pkg PO DAILY aspirin 81 mg tablet 81 mg PO DAILY Problem Reconciliation Problems Reviewed?: Yes Patient Discharge Instructions ACTIVITY: Limited activity DIET: continue same diet and regular diet Patient Instructions: Depression, Hemorrhage, DI for Labor and Delivery, Vaginal , DI for Pre-eclampsia, [facility] Post Discharge Instructions Print Language: Upper Sorbian Providers Primary Care Provider: Angeli Dietz Admit Provider: Antoinette Vela Attending Provider: Antoinette Vela
--- NOTE | 2025-06-20 09:09 | EXP.ANES.I ---
[facility] Anesthesia Record Part I Anesthesia Record I Intake, IV Amount: 1,000 Hydration: Adequate Estimated blood loss (mL): 1,100 Urine output (mL): 100 Blood Products used (#): none Blood Pressure: 124/66 SaO2: 100 Pulse Rate: 90 Airway Patency: Patent Respiratory Rate: 16 Temperature: 98.1 F Patient is:: Awake and Stable Stable to PACU at:: 08:55
[2025-06-20 09:10] VITALS: BP 124/66; PULSE 90; RESP 16; TEMP 36.7; O2SAT 100
== END 2025-06-19 19:25 | disposition home or self-care (01) | DRG 806 ==
PROVIDERS: Admitting Provider Obstetrics & Gynecology; PCP Family Medicine; Visit Provider Obstetrics & Gynecology
DX: O13.4 Gestational [pregnancy-induced] hypertension without significant proteinuria, complicating childbirth (principal); D62 Acute posthemorrhagic anemia; Z37.0 Single live birth; O41.03X0 Oligohydramnios, third trimester, not applicable or unspecified; Z3A.37 37 weeks gestation of pregnancy; O99.02 Anemia complicating childbirth; O69.81X0 Labor and delivery complicated by cord around neck, without compression, not applicable or unspecified; Z87.59 Personal history of other complications of pregnancy, childbirth and the puerperium; Z23 Encounter for immunization; Z79.82 Long term (current) use of aspirin; Z88.0 Allergy status to penicillin; Z88.2 Allergy status to sulfonamides
CPT/HCPCS: 36415; 51702; 59025; 62323; 85025; 86592; 86850; 94761; J0595; J2003; J2405; J2795; J3010; J7050; J7120; J7121